=== PATIENT | female | born 1935 | race Caucasian/White ===

== ENCOUNTER 2016-12-01 18:40 | Inpatient (IN) | payer OTHER ==
[2016-12-01] MEDS ORDERED: NORMAL SALINE 10 ML SYRINGE FLUSH IVP PRN ×3 (18:57→22:34)
[2016-12-01] MEDS ORDERED: Sodium Chloride 0.9% 1,000 ML PRIMARY IV ONE ×2 (18:57→22:34)
[2016-12-01] MEDS ORDERED: Sodium Chloride 0.9% 1,000 ML ONE (19:03)
--- NOTE | 2016-12-01 19:08 | EKG ---
[address] [address] Measurements Intervals [place] Rate: 107 P: 66 IA: 169 QRS: 48 QRSD: 137 T: 180 QT: 376 QTc: 439 Interpretive Statements SINUS TACHYCARDIA LEFT BUNDLE BRANCH BLOCK Compared to ECG 10/03/2016 20:05:43 First degree AV block no longer present Electronically Signed On 12-01-16 19:58:14 MST by Isael Kingsley [email or web address]
[2016-12-01 19:13] LABS: BASOPHILS # (AUTO) 0.03 10*3/UL; BASOPHILS % (AUTO) 0.6 % (0-1); EOSINOPHILS % (AUTO) 0.4 % (0-8); HEMATOCRIT 39.3 % (37.0-47.0); HEMOGLOBIN 12.3 g/dL (12.0-16.0); IMM GRAN % (AUTO) 0.2 % (0-5); IMM GRAN# (AUTO) 0.01 10*3/UL; LYMPHOCYTES # (AUTO) 0.81 10*3/uL; MEAN CORPUSCULAR HEMOGLOBIN 25.2 PG (27-31); MEAN CORPUSCULAR HGB CONC 31.3 g/dL (33-37); MEAN PLATELET VOLUME 9.9 FL (7.4-12.2); MONOCYTES # (AUTO) 0.55 10*3/UL (0.3-0.8); MONOCYTES % (AUTO) 10.2 % (5-15); NEUTROPHILS # (AUTO) 3.97 10*3/UL; NEUTROPHILS % (AUTO) 73.6 % (50-80); RDW COEFFICIENT OF VARIATION 15.5 % (11.5-14.5); RED BLOOD COUNT 4.89 10^6/uL (4.20-5.40); WHITE BLOOD COUNT 5.39 10^3/uL (4.8-10.8)
[2016-12-01 19:14] LABS: PLATELET MORPHOLOGY COMMENT NORMAL MORPHOLOGY (NORM)
[2016-12-01 19:24] LABS: AMYLASE 52 U/L (30-110)
[2016-12-01 19:26] LABS: ASPARTATE AMINO TRANSFERASE 18 IU/L (8-39); BILIRUBIN,TOTAL 1.4 mg/dL (0.3-1.2); BLOOD UREA NITROGEN 11 mg/dL (7-22); BUN/CREATININE RATIO 13.75 (6-20); CALCIUM 9.2 mg/dL (8.7-10.7); CHLORIDE 99 meq/L (98-112); CREATININE 0.8 mg/dL (0.50-1.20); GLUCOSE 121 mg/dL (78-110); MAGNESIUM 1.6 mg/dL (1.6-2.4); POTASSIUM 3.4 meq/L (3.8-5.2); SODIUM 138 meq/L (135-145); TOTAL PROTEIN 7.9 g/dL (6.1-8.0)
[2016-12-01 19:29] LABS: C-REACTIVE PROTEIN < 0.5 mg/dL (0.0-0.9)
[2016-12-01 20:46] LABS: BILIRUBIN,URINE NEGATIVE (NEG); CLARITY,URINE CLEAR (CLEAR); GLUCOSE, URINE (UA) NEGATIVE (NEG); LEUKOCYTE ESTERASE ,URINE NEGATIVE (NEG); NITRATE,URINE NEGATIVE (NEG); OCCULT BLOOD,URINE Trace-intact (NEG); PROTEIN,URINE 30 mg/dl (NEG); UROBILINOGEN,URINE 0.2 EU/dL (0.2)
--- NOTE | 2016-12-01 20:48 | DI ---
HISTORY: Patient complaining of low abdominal pain. History of hysterectomy. COMPARISON: None. TECHNIQUE: Helical CT scanning was performed from the lung bases, through the abdomen and pelvis, to the level of lesser trochanters following the administration of IV contrast material. MPR. Overall i mage quality is limited secondary to patient motion. FINDINGS: LUNG BASES/LOWER HEART: Basilar atelectasis, no focal basilar consolidation, pleural effusion or pne umothorax. Mild cardiac enlargement. Atherosclerotic calcifications of the aorta and coronary arter ies. ABDOMEN/PELVIS: LIVER: Homogeneous parenchymal attenuation. GALLBLADDER: Not visualized, may be surgically absent. PANCREAS: No adjacent inflammatory change. ADRENAL GLANDS: Maintain their triangular shape. SPLEEN: Normal enhancement pattern. KIDNEYS: Anatomic location. No hydronephrosis. Numerous sub centimeter bilateral cortically based les ions, statistically cysts. GREAT VESSELS: Enhance unremarkably, noting atherosclerotic vascular changes of the aorta and its bra nch vessels. FREE INTRAPERITONEAL FLUID: No large volume. VARIABLY DISTENDED BOWEL LOOPS: No findings of high grade bowel obstruction. The distal ileum mucos a demonstrates mild hyperenhancement and contains fluid. Few colonic divericuli are present. No foca l extraluminal collection or free air. APPENDIX: Not visualzied, no inflammatory change in the right lower quadrant. INTERNAL ORGANS: Uterus surgically absent. OSSEOUS STRUCTURES: Multilevel advanced thoracic and lumbar degenerative changes noting a sigmoid tho racolumbar curvature. IMPRESSION: 1. No findings of high grade bowel obstruction, perforation or abscess. 2. The distal ileum mucosa demonstrates mild hyperenhancement and contains fluid, findings may be sec ondary to infectious or inflammatory colitis, early partial small bowel obstruction could have a henri lar appearance. If continued symptoms consider followup CT abdomen following the administration of e nteric contrast agent to further characterize.
[2016-12-01 20:50] LABS: URINE SAMPLE TYPE CATH SPECIMEN
[2016-12-01 20:51] LABS: RBC,URINE 0-2 /hpf
[2016-12-01] MEDS ORDERED: Pantoprazole Inj 40 MG in Normal Saline Flush 10 ML IVP ONE (21:10)
--- NOTE | 2016-12-01 21:16 | PDOC ---
Abdomen/Flank HPI - General Chief Complaint: Abdomen Pain Stated Complaint: Abdominal pain Date Seen by Provider: 12/01/16 Time Seen by Provider: 18:45 Source: POSITIVE: Patient Exam Limitations: POSITIVE: No limitations Nurse's Notes Reviewed & Considered: Yes - History of Present Illness Initial Comments: The patient is an 81-year-old female who presents to the emergency department with upper abdominal pain, decreased appetite and generalized weakness. Her family reports that she has not been feeling well for the past 2 or 3 days. They state that he is not eating or drinking hardly anything. She had a small amount of 7-Up over the past 3 days and part of a cracker. She is complaining of some upper abdominal pain. She has not had any vomiting and denies diarrhea or blood in her stool. She has not had any fevers and denies urinary symptoms. She has not had any chest pain or shortness of breath, numbness or weakness in her extremities other than generalized weakness. She was hospitalized approximately 1 month ago with a GI bleed from a duodenal ulcer in [place]. She apparently received blood transfusions and had an EGD at that time. Her family does report that they are unsure whether she has been taking her antiacid medicines for the past couple of weeks. In addition multiple family members have been ill with gastroenteritis type symptoms. - Patient Home Medications Home Medications: Home Medications Fluoxetine HCl [Prozac] 20 mg PO DAILY 10/04/16 Furosemide [Lasix] 20 mg PO DAILY 10/04/16 Pantoprazole Sodium [Protonix] 40 mg PO BID 10/04/16 Potassium Chloride 1 tab PO BID tab 10/28/16 Sucralfate 1 tab PO QID #120 tab 10/28/16 Cholecalciferol (Vitamin D3) [Vitamin D3] 1 tab PO QD #30 tab 10/31/16 - Patient Allergies Allergies/Adverse Reactions: Allergies Allergy/AdvReac Type Severity Reaction Status Date / Time No Known Allergies Allergy Unverified 10/28/16 14:46 Past Medical History - heen HEENT History: Cataracts Cardiovascular History: Hypertension, Arrhythmia Respiratory History: Denies History Gastrointestinal History: Peptic Ulcer Disease, Other (please comment) Additional Gastrointestinal History: OCC INCONTINENCE. 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 History of Sexually Transmitted Diseases: No Cancer History: Denies History In Past Year Been Physically Harmed or Verbally Threatened: No History of MDRO: No History of Other Communicable Diseases: No Tobacco Use: Never Smoker Alcohol Use: None Substance Use Type: None Previous Surgical History: Yes Type / Date of Surgery: HYSTERECTOMY. APPY Anesthesia Reactions: No Malignant Hyperthermia: No Significant Family History: Heart disease, Cancer Past Medical History Reviewed: Reviewed - No Changes ROS - Limitations ROS Limitations: Other (please comment) (Patient is somewhat of a poor historian , family provides good history) Constitution: REPORTS: Weakness (Generalized weakness, decreased appetite as above). DENIES: Chills, Fever Cardiovascular: DENIES: Chest Pain, Heart Palpitations, Edema (She was having edema several weeks ago however this seems to be improved currently) Respiratory: DENIES: Cough Non Productive, Cough Productive, Shortness Of Breath Neurological: DENIES: Headache, Numbness, Weakness Gastrointestinal: REPORTS: Abdominal Pain, Nausea. DENIES: Vomitting, Diarrhea , Black Stools, Bloody Stools, Constipation Endocrine: REPORTS: Fatigue Musculoskeletal: REPORTS: Denies MS Symptoms Genitourinary: REPORTS: Denies Symptoms Eyes: REPORTS: Denies Symptoms ENT: REPORTS: Denies Symptoms Skin: DENIES: Rash Abdominal/Flank Pain PE - General Appearance General Appearance: POSITIVE: Alert, Cooperative, No Acute Distress, Other (She does appear chronically ill) - HEENT HEENT: POSITIVE: Head Inspection Nml, Eyes Inspection Nml, Ears Inspection Nml, Pharynx Inspect. Nml - Neck Neck: POSITIVE: Normal Inspection. NEGATIVE: Lymphadenopathy - Respiratory Respiratory: POSITIVE: No Respiratory Distress, Breath Sounds Normal - Cardiovascular Cardiovascular: POSITIVE: Regular Rate and Rhythm, Heart Sounds Normal Peripheral Pulses: Dorsalis-pedis (R): 2+, Dorsalis-pedis (L): 2+ - Abdomen Abdomen: Soft: (All Quadrants), Normal Bowel Sounds: (All Quadrants), No Guarding: (All Quadrants), No Rebound: (All Quadrants) Additional Abdominal Details: Her abdomen is somewhat distended, she does have some tenderness primarily in the epigastric region without guarding or rebound tenderness, bowel sounds are present. - Skin Skin: POSITIVE: Intact, No Rash - Extremities Extremity: Normal ROM: (All Extremities), Normal Inspection: (All Extremities) - Neurological Neurological: POSITIVE: Oriented X3, Motor Normal, Sensation Normal Abdomen Progress - Results Reviewed by me Xrays/CTs/US Reviewed by me: Yes Discussed with Radiologist: Yes Radiology Findings: CT scan of the abdomen and pelvis with IV contrast reveals some nonspecific dilated loops of bowel with some fluid and air with no evidence of obstruction or any other acute abnormalities per radiologist. She does have diverticulum without any evidence of active diverticulitis. Lab Results Reviewed: Yes Lab Results:: Laboratory Results 12/01/16 12/01/16 Range/Units 19:09 20:43 WBC 5.39 (4.8-10.8) 10^3/uL RBC 4.89 (4.20-5.40) 10^6/uL Hgb 12.3 (12.0-16.0) g/dL Hct 39.3 (37.0-47.0) % MCV 80.4 L (81-99) FL MCH 25.2 L (27-31) PG MCHC 31.3 L (33-37) g/dL RDW Std Deviation 44.8 (39-50) fL RDW Coeff of Julienne 15.5 H (11.5-14.5) % Plt Count 259 (140-350) 10*3/uL MPV 9.9 (7.4-12.2) FL Immature Gran % (Auto) 0.2 (0-5) % Neut % (Auto) 73.6 (50-80) % Lymph % (Auto) 15.0 (10-50) % [place] % (Auto) 10.2 (5-15) % Eos % (Auto) 0.4 (0-8) % Baso % (Auto) 0.6 (0-1) % Immature Gran # (Auto) 0.01 10*3/UL Neut # (Auto) 3.97 10*3/UL Lymph # (Auto) 0.81 10*3/uL [place] # (Auto) 0.55 (0.3-0.8) 10*3/UL Eos # (Auto) 0.02 10*3/UL Baso # (Auto) 0.03 10*3/UL WBC Morphology Comment Normal morphology (NORM) Plt Morphology Comment Normal morphology (NORM) RBC Morph Comment Normal morphology (NORM) Sodium 138 (135-145) meq/L Potassium 3.4 L (3.8-5.2) meq/L Chloride 99 (98-112) meq/L Carbon Dioxide 27 (23-33) meq/L Anion Gap 12 (5-20) BUN 11 (7-22) mg/dL Creatinine 0.8 (0.50-1.20) mg/dL Estimated GFR (>60 ml/min/1.73m(2)) BUN/Creatinine Ratio 13.75 (6-20) Glucose 121 H (78-110) mg/dL Calculated Osmolality 285.0 (267-292) mOsm/kg Calcium 9.2 (8.7-10.7) mg/dL Magnesium 1.6 (1.6-2.4) mg/dL Total Bilirubin 1.4 H (0.3-1.2) mg/dL AST 18 (8-39) IU/L ALT 29 (9-52) IU/L Alkaline Phosphatase 98 (38-126) IU/L Troponin I 0.015 (< 0.040) ng/mL C-Reactive Protein < 0.5 (0.0-0.9) mg/dL Total Protein 7.9 (6.1-8.0) g/dL Albumin 4.0 (3.5-4.8) g/dL Globulin 3.9 (2.50-4.10) g/dL Albumin/Globulin Ratio 1.00 L (1.3-2.0) mg/g Amylase 52 (30-110) U/L Lipase 92 (23-300) IU/L Ur Collection Type Cath specimen Urine Color Yellow Urine Clarity Clear (CLEAR) Urine pH 7.0 (5.0-8.5) Ur Specific [place] 1.015 (1.005-1.030) Urine Protein 30 (NEG) mg/dl Urine Glucose (UA) Negative (NEG) mg/dL Urine Ketones 15 (NEG) Urine Occult Blood Trace-intact H (NEG) Urine Nitrate Negative (NEG) Urine Bilirubin Negative (NEG) Urine Urobilinogen 0.2 (0.2) EU/dL Ur Leukocyte Esterase Negative (NEG) Urine RBC 0-2 (NONE) /hpf Urine WBC None (NONE) Ur Squamous Epith Cells None (NONE) Ur Renal Epithelial Cell None (NONE) Urine Crystals None Urine Bacteria None (NONE) Urine Casts None (NONE) Urine Mucus None (NONE) Urine Trichomonas None (NONE) Urine Yeast None (NONE) Ur Culture Indicated? Culture not set EKG Interpreted/Reviewed By Me:: Yes EKG Interpretation:: POSITIVE: Normal Sinus Rhythm, Normal Rate, Normal Intervals, Other (Left bundle branch block unchanged from previous) - Patient's Progress MDM / ED Course: On arrival the patient appears to be somewhat dehydrated. An IV was established and she did receive 1 L bolus of normal saline. Lab work and urinalysis are all essentially unremarkable. CT scan of her abdomen and pelvis reveals some nonspecific dilated loops of bowel with no evidence of obstruction or any other acute abnormality per radiologist. The patient's clinical presentation is most consistent with gastritis. She did recently have a GI bleeding secondary to duodenal ulcer and she has not been taking her an acid medicines. The patient will be admitted for further hydration and treatment. Dr. Mehta has agreed to admit the patient and the family and the patient are in agreement with this plan. Patient Care Time - Estimated PCT Patient Care Time (In Minutes): 35 Vital Signs - Recent Vital Signs Vital Signs: Vital Signs (Last 8 hours) Temp Pulse Resp BP Pulse Ox 12/01/16 18:40 97.6 F 114 H 16 177/105 97 - VS Reviewed Vital Signs Reviewed: Yes Discharge Clinical Impression: Abdominal pain, Dehydration, Gastritis Discharge Disposition: Admit to Observation Condition: Fair
[2016-12-01] MEDS ORDERED: ONDANSETRON 4 MG/2 ML VIAL ONE (21:25)
[2016-12-01] MEDS ORDERED: Magnesium Sulfate 2gm (Premix) 2 GM in Premix 1 BAG IV ONE ×2 (21:28→22:00)
--- NOTE | 2016-12-01 21:32 | PDOC ---
History and Physical - History of Present Illness History of Present Illness: This very nice 81-year-old female past medical history significant for upper GI bleed about 1 month ago and was transferred to [place] for a duodenal ulcer which she received some transfusions and the EGD at that time presented to the emergency room with the abdominal pain and generalized weakness decreased appetite for the last 2 or 3 days denies diarrhea nausea vomiting no dysuria or hematuria no chest pain. This morning she appears much better she states that she is now back to her normal self but she has tolerated food is also had a bowel movement. CT scan showed possible ileus repeated abdominal x-ray KUB today - Patient Allergies Allergies/Adverse Reactions: Allergies Allergy/AdvReac Type Severity Reaction Status Date / Time No Known Allergies Allergy Unverified 10/28/16 14:46 Past Medical History - heen HEENT History: Cataracts Cardiovascular History: Hypertension, Arrhythmia Respiratory History: Denies History Gastrointestinal History: Peptic Ulcer Disease, Other (please comment) Additional Gastrointestinal History: OCC INCONTINENCE. 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 History of Sexually Transmitted Diseases: No Cancer History: Denies History In Past Year Been Physically Harmed or Verbally Threatened: No History of MDRO: No History of Other Communicable Diseases: No Tobacco Use: Never Smoker Alcohol Use: None Substance Use Type: None Previous Surgical History: Yes Type / Date of Surgery: HYSTERECTOMY. APPY Anesthesia Reactions: No Malignant Hyperthermia: No Significant Family History: Heart disease, Cancer Past Medical History Reviewed: Reviewed - No Changes Past Medical History Medical History: Upper GI bleed, duodenal ulcer Surgical History: EGD Tobacco Use: Never Smoker Substance Use Type: None Medication / Allergies Home Medications: Home Medications Medication Instructions Recorded Confirmed Type Fluoxetine HCl [Prozac] 20 mg PO DAILY 10/04/16 12/01/16 History Pantoprazole Sodium [Protonix] 40 mg PO BID 10/04/16 12/01/16 History Cholecalciferol (Vitamin D3) 1 tab PO QD #30 tab 10/31/16 12/01/16 Clinic [Vitamin D3] Metoprolol Succinate 12.5 mg PO DAILY 12/01/16 12/01/16 History Allergies/Adverse Reactions: Allergies Allergy/AdvReac Type Severity Reaction Status Date / Time No Known Allergies Allergy Verified 12/01/16 21:47 Review of Systems - Review of Systems All Systems: Reviewed & No Additional Complaints Except as Stated - Respiratory Respiratory: DENIES: Negative System Review, Cough, Sputum, Dyspnea At Rest, Dyspnea with Exertion, Pleuritic Pain, Hemoptysis, Wheezing, Other, See HPI - Gastrointestinal Gastrointestinal / Abdominal: DENIES: Negative System Review, Nausea, Vomiting, Diarrhea, Constipation, Abdominal Pain, Bloody Stool, Poor Appetite, Heartburn, Regurgitation, Bloating, Lactose Intolerance, Melena, Bright Red Blood Per Rectum, Other, See HPI - Genitourinary Genitourinary: DENIES: Negative System Review, Pain, Burning, Hematuria, Incontinence, Urgency, Hesitant Stream, Decreased Stream, Nocutria, Discharge, Sexual Dyfunction, Other, See HPI Exam - Vitals Vital Signs: Vital Signs Temperature 97.6 F Temperature Source Temporal Artery Scan Pulse Rate [Pulse Oximeter] 114 Respiratory Rate 16 Blood Pressure [Right Arm] 177/105 Pulse Ox 97 Oxygen Delivery Method Room Air Height 5 ft 2 in Weight 54.431 kg - General General Appearance: POSITIVE: No Acute Distress, Cooperative - Head Head Exam: POSITIVE: Normal Inspection, Normocephalic, Atraumatic - Eye Eye Exam: POSITIVE: Normal Appearance - Respiratory Respiratory Exam: POSITIVE: Clear to Auscultation - Bilaterally, Breathing Non Labored - Cardiovascular Cardiovascular Exam: POSITIVE: RRR, No Murmur, No Clicks - GI/Abdominal GI/Abdominal Exam: POSITIVE: Normal Bowel Sounds, Non Tender, Soft - Extremities Extremities Exam: POSITIVE: Normal Inspection, No Clubbing Present, No Edema Present - Neurological Neurological Exam: POSITIVE: Alert, Oriented x 3, CN II-XII Intact, No Facial Droop, Speech Intact / Clear - Psychiatric Psychiatric Exam: POSITIVE: Normal Affect Results - Labs CBC and BMP: 12/02/16 05:48 12/02/16 05:48 Labs - Last 24 Hours: Laboratory Results 12/01/16 12/01/16 Range/Units 19:09 20:43 WBC 5.39 (4.8-10.8) 10^3/uL RBC 4.89 (4.20-5.40) 10^6/uL Hgb 12.3 (12.0-16.0) g/dL Hct 39.3 (37.0-47.0) % MCV 80.4 L (81-99) FL MCH 25.2 L (27-31) PG MCHC 31.3 L (33-37) g/dL RDW Std Deviation 44.8 (39-50) fL RDW Coeff of Julienne 15.5 H (11.5-14.5) % Plt Count 259 (140-350) 10*3/uL MPV 9.9 (7.4-12.2) FL Immature Gran % (Auto) 0.2 (0-5) % Neut % (Auto) 73.6 (50-80) % Lymph % (Auto) 15.0 (10-50) % [place] % (Auto) 10.2 (5-15) % Eos % (Auto) 0.4 (0-8) % Baso % (Auto) 0.6 (0-1) % Immature Gran # (Auto) 0.01 10*3/UL Neut # (Auto) 3.97 10*3/UL Lymph # (Auto) 0.81 10*3/uL [place] # (Auto) 0.55 (0.3-0.8) 10*3/UL Eos # (Auto) 0.02 10*3/UL Baso # (Auto) 0.03 10*3/UL WBC Morphology Comment Normal morphology (NORM) Plt Morphology Comment Normal morphology (NORM) RBC Morph Comment Normal morphology (NORM) Sodium 138 (135-145) meq/L Potassium 3.4 L (3.8-5.2) meq/L Chloride 99 (98-112) meq/L Carbon Dioxide 27 (23-33) meq/L Anion Gap 12 (5-20) BUN 11 (7-22) mg/dL Creatinine 0.8 (0.50-1.20) mg/dL Estimated GFR (>60 ml/min/1.73m(2)) BUN/Creatinine Ratio 13.75 (6-20) Glucose 121 H (78-110) mg/dL Calculated Osmolality 285.0 (267-292) mOsm/kg Calcium 9.2 (8.7-10.7) mg/dL Magnesium 1.6 (1.6-2.4) mg/dL Total Bilirubin 1.4 H (0.3-1.2) mg/dL AST 18 (8-39) IU/L ALT 29 (9-52) IU/L Alkaline Phosphatase 98 (38-126) IU/L Troponin I 0.015 (< 0.040) ng/mL C-Reactive Protein < 0.5 (0.0-0.9) mg/dL Total Protein 7.9 (6.1-8.0) g/dL Albumin 4.0 (3.5-4.8) g/dL Globulin 3.9 (2.50-4.10) g/dL Albumin/Globulin Ratio 1.00 L (1.3-2.0) mg/g Amylase 52 (30-110) U/L Lipase 92 (23-300) IU/L Ur Collection Type Cath specimen Urine Color Yellow Urine Clarity Clear (CLEAR) Urine pH 7.0 (5.0-8.5) Ur Specific [place] 1.015 (1.005-1.030) Urine Protein 30 (NEG) mg/dl Urine Glucose (UA) Negative (NEG) mg/dL Urine Ketones 15 (NEG) Urine Occult Blood Trace-intact H (NEG) Urine Nitrate Negative (NEG) Urine Bilirubin Negative (NEG) Urine Urobilinogen 0.2 (0.2) EU/dL Ur Leukocyte Esterase Negative (NEG) Urine RBC 0-2 (NONE) /hpf Urine WBC None (NONE) Ur Squamous Epith Cells None (NONE) Ur Renal Epithelial Cell None (NONE) Urine Crystals None Urine Bacteria None (NONE) Urine Casts None (NONE) Urine Mucus None (NONE) Urine Trichomonas None (NONE) Urine Yeast None (NONE) Ur Culture Indicated? Culture not set Assessment and Plan - Patient Problems (1) Abdominal pain Current Visit: Yes Status: Acute (2) Dehydration Current Visit: Yes Status: Acute (3) Gastritis Current Visit: Yes Status: Acute - Assessment / Plan Additional Assessment/Plan Details: #1 dehydration #2 hypokalemia #3 hypomagnesemia #4 abd pain- poss ileus on ct scan no obstruction replace electrolytes patient had a bowel movement today repeat KUB labs were reviewed electrolytes being replaced consult PT and OT
[2016-12-01] MEDS ORDERED: Pantoprazole Inj 40 MG in Normal Saline Flush 10 ML IVP SCH (21:45)
[2016-12-01] MEDS ORDERED: ONDANSETRON 4 MG/2 ML VIAL IVP PRN (22:34)
[2016-12-01] MEDS: HEPARIN 5000 UNIT/1 ML SUBCUT SCH (23:29)
[2016-12-02] MEDS: D5-1/2NS + 20mEq KCL 1,000 ML PRIMARY IV SCH ×3 (02:23→19:50)
[2016-12-02 06:08] LABS: BASOPHILS # (AUTO) 0.05 10*3/UL; BASOPHILS % (AUTO) 1.5 % (0-1); EOSINOPHILS % (AUTO) 2.6 % (0-8); HEMATOCRIT 31.6 % (37.0-47.0); HEMOGLOBIN 9.6 g/dL (12.0-16.0); IMM GRAN % (AUTO) 0 % (0-5); IMM GRAN# (AUTO) 0 10*3/UL; LYMPHOCYTES # (AUTO) 0.85 10*3/uL; LYMPHOCYTES % (AUTO) 24.7 % (10-50); MEAN CORPUSCULAR HEMOGLOBIN 25.1 PG (27-31); MEAN CORPUSCULAR HGB CONC 30.4 g/dL (33-37); MEAN PLATELET VOLUME 9.9 FL (7.4-12.2); MONOCYTES # (AUTO) 0.48 10*3/UL (0.3-0.8); NEUTROPHILS # (AUTO) 1.97 10*3/UL; NEUTROPHILS % (AUTO) 57.2 % (50-80); RDW COEFFICIENT OF VARIATION 15.3 % (11.5-14.5); RED BLOOD COUNT 3.83 10^6/uL (4.20-5.40); WHITE BLOOD COUNT 3.44 10^3/uL (4.8-10.8)
[2016-12-02 06:11] LABS: PLATELET MORPHOLOGY COMMENT NORMAL MORPHOLOGY (NORM)
[2016-12-02 06:32] LABS: BLOOD UREA NITROGEN 8 mg/dL (7-22); CHLORIDE 103 meq/L (98-112); CREATININE 0.8 mg/dL (0.50-1.20); SODIUM 135 meq/L (135-145)
[2016-12-02 06:33] LABS: GLUCOSE 92 mg/dL (78-110)
[2016-12-02] MEDS: HEPARIN 5000 UNIT/1 ML SUBCUT SCH ×3 (07:17→22:00)
[2016-12-02] MEDS: FLUoxetine 20 MG CAPSULE PO SCH (09:51)
--- NOTE | 2016-12-02 19:00 | DI ---
XR ABDOMEN KUB UPRIGHT,12/02/2016 12:11 PM: Clinical History: Ileus Previous Exam: CT abdomen pelvis performed December 01, 2016 Findings: 2 views of the abdomen and pelvis are obtained, and demonstrate diffuse osteopenia and significant le voscoliosis of the lumbar spine at L1/2. There is large, air-filled loops of colon throughout with a few air-fluid levels. Impression: Large amount of air throughout the colon consistent with an ileus.
[2016-12-02] MEDS ORDERED: POTASSIUM CHLORIDE 20 MEQ TAB PO SCH (21:00)
[2016-12-02] MEDS ORDERED: Potassium Chloride Tab 10 MEQ TAB PO ONE (21:43)
[2016-12-03] MEDS: D5-1/2NS + 20mEq KCL 1,000 ML PRIMARY IV SCH (04:12)
[2016-12-03 06:05] LABS: BASOPHILS # (AUTO) 0.04 10*3/UL; BASOPHILS % (AUTO) 1.4 % (0-1); EOSINOPHILS % (AUTO) 5.9 % (0-8); HEMATOCRIT 33.6 % (37.0-47.0); IMM GRAN % (AUTO) 0.3 % (0-5); IMM GRAN# (AUTO) 0.01 10*3/UL; LYMPHOCYTES # (AUTO) 0.68 10*3/uL; LYMPHOCYTES % (AUTO) 23.7 % (10-50); MEAN CORPUSCULAR HEMOGLOBIN 24.6 PG (27-31); MEAN CORPUSCULAR HGB CONC 29.8 g/dL (33-37); MEAN PLATELET VOLUME 10.2 FL (7.4-12.2); MONOCYTES # (AUTO) 0.38 10*3/UL (0.3-0.8); MONOCYTES % (AUTO) 13.2 % (5-15); NEUTROPHILS # (AUTO) 1.59 10*3/UL; NEUTROPHILS % (AUTO) 55.5 % (50-80); RDW COEFFICIENT OF VARIATION 15.4 % (11.5-14.5); RED BLOOD COUNT 4.06 10^6/uL (4.20-5.40); WHITE BLOOD COUNT 2.87 10^3/uL (4.8-10.8)
[2016-12-03 06:07] LABS: PLATELET MORPHOLOGY COMMENT NORMAL MORPHOLOGY (NORM)
[2016-12-03 06:53] LABS: ASPARTATE AMINO TRANSFERASE 13 IU/L (8-39); BILIRUBIN,TOTAL 0.7 mg/dL (0.3-1.2); BLOOD UREA NITROGEN 6 mg/dL (7-22); BUN/CREATININE RATIO 8.57 (6-20); CALCIUM 8.1 mg/dL (8.7-10.7); CHLORIDE 110 meq/L (98-112); CREATININE 0.7 mg/dL (0.50-1.20); GLUCOSE 87 mg/dL (78-110); POTASSIUM 4.8 meq/L (3.8-5.2); SODIUM 143 meq/L (135-145)
[2016-12-03 06:54] LABS: TOTAL PROTEIN 6.3 g/dL (6.1-8.0)
--- NOTE | 2016-12-03 08:48 | PDOC(PROG) ---
Date and Time of Service: 12/03/2016 8 am Interval History: Subjective Patient is a difficult historian, I think she has some dementia, she couldn't tell me why she ended up here in the hospital but after specific questioning she remembered that she had some problems in her belly but she couldn't tell me when did that start, she did say that she had some pain in her abdomen and that seemed to be resolved now. She states she is feeling much better. She couldn' t tell me whether she had a bowel movement or not. She did say she ate. She said she lives with her niece. She is denying abdominal pain now, nausea, vomiting. When asked why she ended up in [place] a month ago she couldn't tell me why. Apparently she had a GI bleeding per the note in she had the an EGD which showed duodenal ulcer. Despite the difficulty that she faces in remembering her symptoms she is able to tell me the day and the month the year. Objective : Data - Labs CBC and BMP: 12/03/16 05:45 12/03/16 05:45 Labs - Last 24 Hours: Laboratory Results 12/03/16 Range/Units 05:45 WBC 2.87 L (4.8-10.8) 10^3/uL RBC 4.06 L (4.20-5.40) 10^6/uL Hgb 10.0 L (12.0-16.0) g/dL Hct 33.6 L (37.0-47.0) % MCV 82.8 (81-99) FL MCH 24.6 L (27-31) PG MCHC 29.8 L (33-37) g/dL RDW Std Deviation 46.1 (39-50) fL RDW Coeff of Julienne 15.4 H (11.5-14.5) % Plt Count 183 (140-350) 10*3/uL MPV 10.2 (7.4-12.2) FL Immature Gran % (Auto) 0.3 (0-5) % Neut % (Auto) 55.5 (50-80) % Lymph % (Auto) 23.7 (10-50) % [place] % (Auto) 13.2 (5-15) % Eos % (Auto) 5.9 (0-8) % Baso % (Auto) 1.4 H (0-1) % Immature Gran # (Auto) 0.01 10*3/UL Neut # (Auto) 1.59 10*3/UL Lymph # (Auto) 0.68 10*3/uL [place] # (Auto) 0.38 (0.3-0.8) 10*3/UL Eos # (Auto) 0.17 10*3/UL Baso # (Auto) 0.04 10*3/UL WBC Morphology Comment Normal morphology (NORM) Plt Morphology Comment Normal morphology (NORM) RBC Morph Comment Normal morphology (NORM) Sodium 143 D (135-145) meq/L Potassium 4.8 D (3.8-5.2) meq/L Chloride 110 (98-112) meq/L Carbon Dioxide 26 (23-33) meq/L Anion Gap 7 (5-20) BUN 6 L (7-22) mg/dL Creatinine 0.7 (0.50-1.20) mg/dL Estimated GFR [employer] BUN/Creatinine Ratio 8.57 (6-20) Glucose 87 (78-110) mg/dL Calculated Osmolality 292.0 (267-292) mOsm/kg Calcium 8.1 L (8.7-10.7) mg/dL Total Bilirubin 0.7 (0.3-1.2) mg/dL AST 13 (8-39) IU/L ALT 22 (9-52) IU/L Alkaline Phosphatase 75 (38-126) IU/L Total Protein 6.3 (6.1-8.0) g/dL Albumin 3.1 L (3.5-4.8) g/dL Globulin 3.2 (2.50-4.10) g/dL Albumin/Globulin Ratio 0.90 L (1.3-2.0) mg/g Objective : Exam - General General Appearance: No Acute Distress, Cooperative - Head Head Exam: Normal Inspection, Atraumatic - Eye Eye Exam: Normal Appearance - ENT ENT Exam: Normal Exam - Neck Neck Exam: Normal Inspection - Respiratory Respiratory Exam: Clear to Auscultation - Bilaterally - Cardiovascular Cardiovascular Exam: RRR, Systolic Murmur - GI/Abdominal GI/Abdominal Exam: Normal Bowel Sounds, Non Tender, Soft - Rectal Rectal Exam: Deferred - External Exam: Deferred - Extremities Extremities Exam: Normal Inspection - Back Back Exam: Normal Inspection - Neurological Neurological Exam: Alert, Oriented x 3, CN II-XII Intact, Moves All Extremities Equally - Psychiatric Psychiatric Exam: Normal Affect - Integumentary Integumentary Exam: Normal Color Assessment and Plan - Patient Problems (1) Abdominal pain Current Visit: Yes Status: Acute Comment: Abdominal pain seemed to be resolved. I did speak with the nursing staff and she did have a bowel movement yesterday. She seemed to be tolerating her diet but she is on clear liquid. The x-ray that she had suggested some ileus. Though the repeat x-ray showed still the same but clinically she is denying symptoms there is no tenderness at all in her stomach. I think we'll advance her diet check on her later on if she still doing ok probably will send her home. (2) History of GI bleed Current Visit: Yes Status: Acute Comment: She is on Protonix continue
[2016-12-03] MEDS: FLUoxetine 20 MG CAPSULE PO SCH (09:34)
[2016-12-03] MEDS: METOPROLOL SUCCINATE 25 MG SR 24H TABLET PO SCH (09:34)
[2016-12-03] MEDS: PANTOPRAZOLE 40 MG TABLET PO SCH ×2 (09:34→20:36)
[2016-12-03] MEDS: HEPARIN 5000 UNIT/1 ML SUBCUT SCH ×3 (09:34→23:26)
[2016-12-04 06:47] LABS: BASOPHILS # (AUTO) 0.04 10*3/UL; BASOPHILS % (AUTO) 1.1 % (0-1); HEMATOCRIT 36.6 % (37.0-47.0); HEMOGLOBIN 11.3 g/dL (12.0-16.0); IMM GRAN % (AUTO) 0 % (0-5); IMM GRAN# (AUTO) 0 10*3/UL; LYMPHOCYTES # (AUTO) 0.81 10*3/uL; LYMPHOCYTES % (AUTO) 21.4 % (10-50); MEAN CORPUSCULAR HEMOGLOBIN 25.1 PG (27-31); MEAN CORPUSCULAR HGB CONC 30.9 g/dL (33-37); MEAN PLATELET VOLUME 10.4 FL (7.4-12.2); MONOCYTES # (AUTO) 0.53 10*3/UL (0.3-0.8); NEUTROPHILS # (AUTO) 2.26 10*3/UL; NEUTROPHILS % (AUTO) 59.5 % (50-80); RDW COEFFICIENT OF VARIATION 15.4 % (11.5-14.5); WHITE BLOOD COUNT 3.79 10^3/uL (4.8-10.8)
[2016-12-04 06:54] LABS: PLATELET MORPHOLOGY COMMENT NORMAL MORPHOLOGY (NORM)
[2016-12-04 07:11] LABS: BLOOD UREA NITROGEN 8 mg/dL (7-22); CHLORIDE 106 meq/L (98-112); CREATININE 0.8 mg/dL (0.50-1.20); GLUCOSE 105 mg/dL (78-110); POTASSIUM 3.6 meq/L (3.8-5.2); SODIUM 139 meq/L (135-145)
[2016-12-04 07:12] LABS: CALCIUM 8.5 mg/dL (8.7-10.7)
[2016-12-04 07:23] VITALS: RESP 20
[2016-12-04] MEDS: HEPARIN 5000 UNIT/1 ML SUBCUT SCH (08:24)
[2016-12-04] MEDS: FLUoxetine 20 MG CAPSULE PO SCH (08:25)
[2016-12-04] MEDS: Pantoprazole Inj 40 MG in Normal Saline Flush 10 ML IVP SCH ×2 (08:25)
[2016-12-04] MEDS: METOPROLOL SUCCINATE 25 MG SR 24H TABLET PO SCH (08:25)
[2016-12-04] MEDS: PANTOPRAZOLE 40 MG TABLET PO SCH (08:33)
[2016-12-04] MEDS ORDERED: Potassium Chloride Tab 10 MEQ TAB PO SCH (09:00)
--- NOTE | 2016-12-04 11:02 | PDOC(PROG) ---
Date and Time of Service: 12/04/2016 11 AM Interval History: Subjective Patient is denying symptoms. Yesterday after I checked on her in the afternoon she said she had some abdominal pain although her description was very vague, we decided to watch her overnight also because of her memory issues. Today she is denying symptoms there is no abdominal pain. No vomiting. She said she did have a bowel movement but she couldn't tell me when. Objective : Data - Labs CBC and BMP: 12/04/16 06:30 12/04/16 06:30 Labs - Last 24 Hours: Laboratory Results 12/04/16 Range/Units 06:30 WBC 3.79 L (4.8-10.8) 10^3/uL RBC 4.50 (4.20-5.40) 10^6/uL Hgb 11.3 L (12.0-16.0) g/dL Hct 36.6 L (37.0-47.0) % MCV 81.3 (81-99) FL MCH 25.1 L (27-31) PG MCHC 30.9 L (33-37) g/dL RDW Std Deviation 45.6 (39-50) fL RDW Coeff of Julienne 15.4 H (11.5-14.5) % Plt Count 207 (140-350) 10*3/uL MPV 10.4 (7.4-12.2) FL Immature Gran % (Auto) 0 (0-5) % Neut % (Auto) 59.5 (50-80) % Lymph % (Auto) 21.4 (10-50) % Barbour % (Auto) 14.0 (5-15) % Eos % (Auto) 4.0 (0-8) % Baso % (Auto) 1.1 H (0-1) % Immature Gran # (Auto) 0 10*3/UL Neut # (Auto) 2.26 10*3/UL Lymph # (Auto) 0.81 10*3/uL Barbour # (Auto) 0.53 (0.3-0.8) 10*3/UL Eos # (Auto) 0.15 10*3/UL Baso # (Auto) 0.04 10*3/UL WBC Morphology Comment Normal morphology (NORM) Plt Morphology Comment Normal morphology (NORM) RBC Morph Comment Normal morphology (NORM) Sodium 139 (135-145) meq/L Potassium 3.6 L D (3.8-5.2) meq/L Chloride 106 (98-112) meq/L Carbon Dioxide 26 (23-33) meq/L Anion Gap 7 (5-20) BUN 8 (7-22) mg/dL Creatinine 0.8 (0.50-1.20) mg/dL Estimated GFR Head Of [employer] BUN/Creatinine Ratio 10.00 (6-20) Glucose 105 (78-110) mg/dL Calculated Osmolality 285.0 (267-292) mOsm/kg Calcium 8.5 L (8.7-10.7) mg/dL Objective : Exam - General General Appearance: No Acute Distress, Cooperative - Head Head Exam: Normal Inspection - Eye Eye Exam: Normal Appearance - ENT ENT Exam: Normal Exam - Neck Neck Exam: Normal Inspection - Respiratory Respiratory Exam: Clear to Auscultation - Bilaterally - Cardiovascular Cardiovascular Exam: RRR - GI/Abdominal GI/Abdominal Exam: Normal Bowel Sounds, Non Tender, Non Distended, Soft - Rectal Rectal Exam: Deferred - External Exam: Deferred - Extremities Extremities Exam: Normal Inspection - Back Back Exam: Normal Inspection - Neurological Neurological Exam: Alert, CN II-XII Intact, Moves All Extremities Equally - Psychiatric Psychiatric Exam: Normal Affect Assessment and Plan - Patient Problems (1) Abdominal pain Current Visit: Yes Status: Acute Comment: This is resolved. She may had some gastritis. I think we can send her home. Follow-up with her primary. (2) History of GI bleed Current Visit: Yes Status: Acute Comment: Continue Protonix
[2016-12-04 11:47] VITALS: TEMP 98
--- NOTE | 2016-12-04 12:39 | DCSUMMARY ---
Hospitalization Summary Admit Date: 12/01/16 Discharge Date: 12/04/16 Hospital Course: Discharge diagnoses 1. Abdominal pain resolved, question gastritis versus ileus 2. History of recent GI bleed 3. Hypertension 4. Hypokalemia improved Hospital course This is an 81 years old female with medical history significant for history of hypertension, recent GI bleed for which she was transferred to [place] she received transfusion and had an EGD which showed a duodenal ulcer. She was brought to the hospital because of abdominal pain and weakness and decreased appetite the last 3 days because of that the she was brought to the hospital a CT scan of the abdomen showed no evidence of high-grade bowel obstruction, perforation or abscess. The distal ileum mucosa demonstrate mild hyperenhancement and contains fluid, findings may be secondary to infectious or inflammatory colitis. She had an x-ray of the abdomen the next day which showed possible ileus, I saw her on the fourth , she is a difficult historian, initially said he did not have complaint, we suspected some memory issues as she has trouble giving me the history. Abdominal examination unremarkable we thought will observe and after lunch I checked on her again that time she mentioned she had some vague abdominal pain so decided to watch her Overnight. on the day of discharge there was no events overnight she denied any complaint. Her abdominal examination was benign. We thought that she could be discharged home follow-up with her PCP. She need to take her medication including the Protonix she had an episode of gastritis versus ileus. She did have a low potassium when she came in and that was replaced. When she was discharged she was tolerating diet and she did have a bowel movement Laboratory Results 12/01/16 12/01/16 12/02/16 Range/Units 19:09 20:43 05:48 WBC 5.39 3.44 L (4.8-10.8) 10^3/uL RBC 4.89 3.83 L (4.20-5.40) 10^6/uL Hgb 12.3 9.6 L (12.0-16.0) g/dL Hct 39.3 31.6 L (37.0-47.0) % MCV 80.4 L 82.5 (81-99) FL MCH 25.2 L 25.1 L (27-31) PG MCHC 31.3 L 30.4 L (33-37) g/dL RDW Std Deviation 44.8 45.1 (39-50) fL RDW Coeff of Julienne 15.5 H 15.3 H (11.5-14.5) % Plt Count 259 191 (140-350) 10*3/uL MPV 9.9 9.9 (7.4-12.2) FL Immature Gran % (Auto) 0.2 0 (0-5) % Neut % (Auto) 73.6 57.2 (50-80) % Lymph % (Auto) 15.0 24.7 (10-50) % Merrick % (Auto) 10.2 14.0 (5-15) % Eos % (Auto) 0.4 2.6 (0-8) % Baso % (Auto) 0.6 1.5 H (0-1) % Immature Gran # (Auto) 0.01 0 10*3/UL Neut # (Auto) 3.97 1.97 10*3/UL Lymph # (Auto) 0.81 0.85 10*3/uL Merrick # (Auto) 0.55 0.48 (0.3-0.8) 10*3/UL Eos # (Auto) 0.02 0.09 10*3/UL Baso # (Auto) 0.03 0.05 10*3/UL WBC Morphology Comment Normal morphology Normal morphology (NORM) Plt Morphology Comment Normal morphology Normal morphology (NORM) RBC Morph Comment Normal morphology Normal morphology (NORM) Sodium 138 135 (135-145) meq/L Potassium 3.4 L 3.0 L (3.8-5.2) meq/L Chloride 99 103 (98-112) meq/L Carbon Dioxide 27 26 (23-33) meq/L Anion Gap 12 6 (5-20) BUN 11 8 (7-22) mg/dL Creatinine 0.8 0.8 (0.50-1.20) mg/dL Estimated GFR Packer (>60 ml/min/1.73m(2)) BUN/Creatinine Ratio 13.75 10.00 (6-20) Glucose 121 H 92 (78-110) mg/dL Calculated Osmolality 285.0 277.0 (267-292) mOsm/kg Calcium 9.2 8.0 L (8.7-10.7) mg/dL Magnesium 1.6 (1.6-2.4) mg/dL Total Bilirubin 1.4 H (0.3-1.2) mg/dL AST 18 (8-39) IU/L ALT 29 (9-52) IU/L Alkaline Phosphatase 98 (38-126) IU/L Troponin I 0.015 (< 0.040) ng/mL C-Reactive Protein < 0.5 (0.0-0.9) mg/dL Total Protein 7.9 (6.1-8.0) g/dL Albumin 4.0 (3.5-4.8) g/dL Globulin 3.9 (2.50-4.10) g/dL Albumin/Globulin Ratio 1.00 L (1.3-2.0) mg/g Amylase 52 (30-110) U/L Lipase 92 (23-300) IU/L Ur Collection Type Cath specimen Urine Color Yellow Urine Clarity Clear (CLEAR) Urine pH 7.0 (5.0-8.5) Ur Specific Clinton 1.015 (1.005-1.030) Urine Protein 30 (NEG) mg/dl Urine Glucose (UA) Negative (NEG) mg/dL Urine Ketones 15 (NEG) Urine Occult Blood Trace-intact H (NEG) Urine Nitrate Negative (NEG) Urine Bilirubin Negative (NEG) Urine Urobilinogen 0.2 (0.2) EU/dL Ur Leukocyte Esterase Negative (NEG) Urine RBC 0-2 (NONE) /hpf Urine WBC None (NONE) Ur Squamous Epith Cells None (NONE) Ur Renal Epithelial Cell None (NONE) Urine Crystals None Urine Bacteria None (NONE) Urine Casts None (NONE) Urine Mucus None (NONE) Urine Trichomonas None (NONE) Urine Yeast None (NONE) Ur Culture Indicated? Culture not set 12/03/16 12/04/16 Range/Units 05:45 06:30 WBC 2.87 L 3.79 L (4.8-10.8) 10^3/uL RBC 4.06 L 4.50 (4.20-5.40) 10^6/uL Hgb 10.0 L 11.3 L (12.0-16.0) g/dL Hct 33.6 L 36.6 L (37.0-47.0) % MCV 82.8 81.3 (81-99) FL MCH 24.6 L 25.1 L (27-31) PG MCHC 29.8 L 30.9 L (33-37) g/dL RDW Std Deviation 46.1 45.6 (39-50) fL RDW Coeff of Julienne 15.4 H 15.4 H (11.5-14.5) % Plt Count 183 207 (140-350) 10*3/uL MPV 10.2 10.4 (7.4-12.2) FL Immature Gran % (Auto) 0.3 0 (0-5) % Neut % (Auto) 55.5 59.5 (50-80) % Lymph % (Auto) 23.7 21.4 (10-50) % Merrick % (Auto) 13.2 14.0 (5-15) % Eos % (Auto) 5.9 4.0 (0-8) % Baso % (Auto) 1.4 H 1.1 H (0-1) % Immature Gran # (Auto) 0.01 0 10*3/UL Neut # (Auto) 1.59 2.26 10*3/UL Lymph # (Auto) 0.68 0.81 10*3/uL Merrick # (Auto) 0.38 0.53 (0.3-0.8) 10*3/UL Eos # (Auto) 0.17 0.15 10*3/UL Baso # (Auto) 0.04 0.04 10*3/UL WBC Morphology Comment Normal morphology Normal morphology (NORM) Plt Morphology Comment Normal morphology Normal morphology (NORM) RBC Morph Comment Normal morphology Normal morphology (NORM) Sodium 143 D 139 (135-145) meq/L Potassium 4.8 D 3.6 L D (3.8-5.2) meq/L Chloride 110 106 (98-112) meq/L Carbon Dioxide 26 26 (23-33) meq/L Anion Gap 7 7 (5-20) BUN 6 L 8 (7-22) mg/dL Creatinine 0.7 0.8 (0.50-1.20) mg/dL Estimated GFR Packer Packer (>60 ml/min/1.73m(2)) BUN/Creatinine Ratio 8.57 10.00 (6-20) Glucose 87 105 (78-110) mg/dL Calculated Osmolality 292.0 285.0 (267-292) mOsm/kg Calcium 8.1 L 8.5 L (8.7-10.7) mg/dL Magnesium (1.6-2.4) mg/dL Total Bilirubin 0.7 (0.3-1.2) mg/dL AST 13 (8-39) IU/L ALT 22 (9-52) IU/L Alkaline Phosphatase 75 (38-126) IU/L Troponin I (< 0.040) ng/mL C-Reactive Protein (0.0-0.9) mg/dL Total Protein 6.3 (6.1-8.0) g/dL Albumin 3.1 L (3.5-4.8) g/dL Globulin 3.2 (2.50-4.10) g/dL Albumin/Globulin Ratio 0.90 L (1.3-2.0) mg/g Amylase (30-110) U/L Lipase (23-300) IU/L Ur Collection Type Urine Color Urine Clarity (CLEAR) Urine pH (5.0-8.5) Ur Specific Clinton (1.005-1.030) Urine Protein (NEG) mg/dl Urine Glucose (UA) (NEG) mg/dL Urine Ketones (NEG) Urine Occult Blood (NEG) Urine Nitrate (NEG) Urine Bilirubin (NEG) Urine Urobilinogen (0.2) EU/dL Ur Leukocyte Esterase (NEG) Urine RBC (NONE) /hpf Urine WBC (NONE) Ur Squamous Epith Cells (NONE) Ur Renal Epithelial Cell (NONE) Urine Crystals Urine Bacteria (NONE) Urine Casts (NONE) Urine Mucus (NONE) Urine Trichomonas (NONE) Urine Yeast (NONE) Ur Culture Indicated? Discharge instruction Diet regular Activity as tolerated Medications Home Medications Medication Instructions Recorded Confirmed Type Fluoxetine HCl [Prozac] 20 mg PO DAILY 10/04/16 12/01/16 History Pantoprazole Sodium [Protonix] 40 mg PO BID 10/04/16 12/01/16 History Cholecalciferol (Vitamin D3) 1 tab PO QD #30 tab 10/31/16 12/01/16 Clinic [Vitamin D3] Metoprolol Succinate 12.5 mg PO DAILY 12/01/16 12/01/16 History Potassium Chloride [Klor-Con] 10 meq PO DAILY #5 tab 12/04/16 Rx Follow-up with PCP in 1-2 weeks Condition at discharge was stable for discharge Exam - Vitals Vital Signs: Vital Signs Temperature 98 F Temperature Source Temporal Artery Scan Pulse Rate [Apical] 92 Pulse Rate [Telemetry] 88 Pulse Rate [Pulse Oximeter] 88 Pulse Rate 77 Respiratory Rate 20 Blood Pressure [Right Arm] 174/87 Blood Pressure 175/96 Pulse Ox 97 Oxygen Delivery Method Room Air Height 5 ft 2 in Weight 124 lb 6.4 oz Patient Problems - Patient Problem List (1) Abdominal pain Status: Acute (2) History of GI bleed Status: Acute
--- NOTE | 2016-12-05 12:37 | PTI REPORT ---
Thank you for the referral of Cheryle Carter. She was seen on 12/04/16 for an inpatient evaluation secondary to weakness. SUBJECTIVE: The patient is an 81-year-old female who presented to the hospital after being at the [facility] for an upper GI bleed. We have just received orders for therapy for weakness. The patient states that she has had multiple falls in the last month. She states she has had a few at her apartment at that lives in in [place]. She states that she does have a LifeAlert button but she forgets to wear that at times. The patient states that she doesn't feel safe going back to her apartment; however, when asked about other options, she states she is not sure what other options she will have. The patient states that she does not wish to participet in therapy and wants to lay in bed instead. The patient feels that she can do most things on her own by herself. Prior to admittance to the hospital the patient was living in an apartment by herself. She does have lots of family in town in [place] to look after her as well and she was independent with her ADLs. She states that she dressed herself and took care of herself. The patient states that she did not use any kind of assistive device prior to coming to the hospital. PAST MEDICAL HISTORY: Past medical history can be found in the patient's medical record. OBJECTIVE FINDINGS: General observations: The patient is alert and oriented to setting upon the therapist's arrival. The patient is very reluctant to participate in therapy as she states that she feels she is doing fine and does not need therapy. Bed mobility: After max verbal cueing and encouragement, the patient was able to move from a supine to seated position, requiring min assist in order just to get into the position due to the patient's reluctance to participate. Balance: The patient demonstrated good seated balance at edge of bed. Strength: The patient demonstrated 4/5 bilateral lower extremity strength. Transfers: The patient was able to perform a sit to stand transfer with stand by assist x1 for safety. She is very impulsive with the movement; the therapist thinks it is mainly due to the fact that she doesn't want to participte in therapy because she stood up very quickly and took off walking toward her door at a very rapid, impulsive pace. Ambulation: The patient was steady with her walking. The therapist believes when the patient is ambulating when she wishes to do it, she probably does so at a more controlled pace. We did provide contact guard assist x1 for safety due to concerns with her impulsivity at the time. The patient ambulated 15 feet ; she then stopped at her door and stated she refused to walk any further. The patient then walked quickly back to her bed with contact guard assist x1 for safety concerns. Once the patient got over to her bed, she plopped back down onto her bed and refused to participate with anymore therapy. She stated she wished to remain seated edge of bed. ASSESSMENT: The patient has fair rehab potential due to her reluctancy to participate in therapy. Problem List: Decreased endurance/activity tolerance Safety concerns with patient's impulsivity at times Short-Term Goals: To be met by discharge from inpatient: Patient will be independent and safe with all transfers. Patient will be able to ambulate 150 feet safely without an assistive device. Long-Term Goals: To be met following discharge from inpatient: Patient will be seen by outpatient physical therapy if deemed necessary at time of discharge. TREATMENT PLAN: Patient will be seen B.I.D during the week and one time per day over the weekend as an inpatient for working on safety awareness with transfers, increasing ambulation distance, and general strengthening activities. INITIAL TREATMENT: Treatment today consisted of the initial evaluation followed by the patient performing bed mobility and ambulation. The patient walked quickly back to her bed with contact guard assist x1 for safety concerns. Once the patient got over to her bed, she plopped back down onto her bed and refused to participate with anymore therapy. She stated she wished to remain seated edge of bed. We did bucket hooker her chair alarm as she was sitting up in bed and also put on her bed alarm so that she could sit edge of bed. The patient was also given her call light. ROLANDO
--- NOTE | 2016-12-05 16:02 | OTI REPORT ---
Thank you for the referral of Cheryle Carter. She was seen on 12/04/16 for an occupational therapy inpatient evaluation secondary to weakness. SUBJECTIVE: The patient is an 81-year-old female. PAST MEDICAL HISTORY: Past medical history can be found in the patient's medical record. OBJECTIVE FINDINGS: [] ASSESSMENT: [] Short-Term Goals: To be met by discharge from inpatient: Patient will be able to [] Patient will be able to [] Patient will be able to [] Patient will be able to [] Long-Term Goals: To be met following discharge from inpatient: Patient will be able to [] Patient will be able to [] TREATMENT PLAN: Patient will be seen B.I.D during the week and one time per day over the weekend as an inpatient to address the above goals and objectives.[] INITIAL TREATMENT: [] MTDD
--- NOTE | 2016-12-08 10:50 | OTI REPORT ---
Thank you for the referral of Cheryle Carter. She was seen on 12/04/16 for an occupational therapy inpatient evaluation secondary to weakness. SUBJECTIVE: The patient is an 81-year-old female who is being seen secondary to falling at home and levels being off. The patient lives in her apartment by herself. The patient reports being independent with dressing herself and simple hygiene tasks. She states she did not have her LifeAlert on when she fell. She had difficulty describing where and when she fell. She does have some family that helps her. She goes to the [facility] at times for meals. PAST MEDICAL HISTORY: Past medical history can be found in the patient's medical record. OBJECTIVE FINDINGS: Cognition: Today the patient demonstrated some cognitive difficulties. She is a very concrete thinker and perseverated on some tasks and tried to detour from some of the conversation today by getting distracted by other things in her room. Activities of daily living: The patient was able to don and doff her socks independently. She was able to stand for two minutes at the sink to complete simple hygiene tasks with stand by assistance. Range of motion: Her upper extremity range of motion was within normal limits. Strength: Strength in bilateral upper extremities was 4/5. Pain: The patient states she is not in a lot of pain anywhere. Bed mobility: The patient was able to come from supine to sit independently. Transfers: The patient was able to come from sit to stand independently. ASSESSMENT: The patient needed increased time in order to process through some of the tasks. She is somewhat cognitively involved but is not willing to go to a correction. She will more than likely return to her apartment. Physically the patient is doing well. Cognitively she has always had issues and this is more than likely her baseline. Short-Term Goals: To be met by discharge from inpatient: Patient will increase upper extremity strength to 5/5. Patient will complete a mini mental assessment to assess her cognition. Patient will be able to complete all functional transfers independently. Long-Term Goals: To be met following discharge from inpatient: Patient will be discharged to her apartment, demonstrating independence with basic ADLs. TREATMENT PLAN: Patient will be seen B.I.D during the week and one time per day over the weekend as an inpatient to address the above goals and objectives. INITIAL TREATMENT: Treatment today consisted of the initial evaluation followed by functional transfers, lower extremity dressing tasks, and standing at sink x2 minutes to complete hygiene activities. ROLANDO
== END 2016-12-04 12:59 | disposition home or self-care (01) | DRG 392 ==
LOC: ER 18:40 → MED/SURG 21:27
PROVIDERS: ADMIT Internal Medicine; ATTEND Internal Medicine
DX: R10.10 Upper abdominal pain, unspecified (principal); K56.7 Ileus, unspecified; K29.70 Gastritis, unspecified, without bleeding; I10 Essential (primary) hypertension; E87.6 Hypokalemia; E86.0 Dehydration; E83.42 Hypomagnesemia
CPT/HCPCS: 36415; 74020; 74177; 80048; 80053; 81001; 81003; 82150; 83690; 83735; 84484; 85025; 86140; 93005; 93010; 96374; 97001; 99285; J1644; J2405; J3475; J3490; J7030

== ENCOUNTER 2016-12-10 14:20 | Inpatient (IN) | payer OTHER ==
[2016-12-10] MEDS ORDERED: Sodium Chloride 0.9% 1,000 ML PRIMARY IV ONE (14:42)
[2016-12-10] MEDS ORDERED: NORMAL SALINE 10 ML SYRINGE FLUSH IVP PRN ×2 (14:42→17:13)
[2016-12-10 15:04] LABS: BASOPHILS # (AUTO) 0.03 10*3/UL; BASOPHILS % (AUTO) 0.5 % (0-1); EOSINOPHILS % (AUTO) 1.8 % (0-8); HEMATOCRIT 35.1 % (37.0-47.0); HEMOGLOBIN 10.8 g/dL (12.0-16.0); IMM GRAN % (AUTO) 0.2 % (0-5); IMM GRAN# (AUTO) 0.01 10*3/UL; LYMPHOCYTES # (AUTO) 0.87 10*3/uL; LYMPHOCYTES % (AUTO) 15.4 % (10-50); MEAN CORPUSCULAR HEMOGLOBIN 24.9 PG (27-31); MEAN CORPUSCULAR HGB CONC 30.8 g/dL (33-37); MEAN PLATELET VOLUME 10.9 FL (7.4-12.2); MONOCYTES # (AUTO) 0.68 10*3/UL (0.3-0.8); NEUTROPHILS # (AUTO) 3.97 10*3/UL; NEUTROPHILS % (AUTO) 70.1 % (50-80); RDW COEFFICIENT OF VARIATION 15.9 % (11.5-14.5); RED BLOOD COUNT 4.33 10^6/uL (4.20-5.40); WHITE BLOOD COUNT 5.66 10^3/uL (4.8-10.8)
[2016-12-10 15:08] LABS: PLATELET MORPHOLOGY COMMENT NORMAL MORPHOLOGY (NORM)
[2016-12-10 15:16] LABS: BILIRUBIN,URINE NEGATIVE (NEG); CLARITY,URINE CLEAR (CLEAR); GLUCOSE, URINE (UA) NEGATIVE (NEG); LEUKOCYTE ESTERASE ,URINE SMALL (NEG); NITRATE,URINE POSITIVE (NEG); OCCULT BLOOD,URINE MODERATE (NEG); PROTEIN,URINE 30 mg/dl (NEG); UROBILINOGEN,URINE 0.2 mg/dL (0.2)
[2016-12-10 15:22] LABS: BILIRUBIN,TOTAL 1.1 mg/dL (0.3-1.2); BUN/CREATININE RATIO 18.88 (6-20); CALCIUM 9.1 mg/dL (8.7-10.7); CREATININE 0.9 mg/dL (0.50-1.20); POTASSIUM 3.8 meq/L (3.8-5.2)
[2016-12-10 15:34] LABS: URINE SAMPLE TYPE CATH SPECIMEN
[2016-12-10 15:35] LABS: BACTERIA,URINE MANY; WBC,URINE 15-20
--- NOTE | 2016-12-10 16:43 | PDOC ---
Nausea/Vomiting/Diarrhea HPI - General Chief Complaint: Nausea / Vomiting / Diarrhea Stated Complaint: diarrhea Date Seen by Provider: 12/10/16 Time Seen by Provider: 14:25 Source: POSITIVE: Patient, Other (nephew) Exam Limitations: POSITIVE: No limitations Nurse's Notes Reviewed & Considered: Yes - History of Present Illness Initial Comments: The patient is an 81 year old female. She states that around 03 October she was hospitalized with gastrointestinal bleeding in [place]. EGD reportedly showed a bleeding ulcer and she was transfused. She was discharged from the [facility] about a week later. She did not have a colonoscopy, although her manager fiber in [place] recommended that she have one upon her return to [place]. On December 01 she was hospitalized here with abdominal pain and weakness. She was hospitalized here for 3 days. Prior to her hospitalization in [place] on for September she lived alone, but since she has been living with her niece and nephew. Nephew reports that the patient has been having diarrhea and loose bowel movement was some fecal incontinence. He states that patient is also had some urinary incontinence. No vomiting. Stool has been dark. No abdominal pain. No fevers. She has reportedly been having a decreased appetite for the past 2 weeks. Patient takes potassium chloride supplements, pantoprazol l, metoprolol, cholecalciferol and fluoxetine. Body Location Affected: REPORTS: Abdomen, Other (As above) Timing: REPORTS: Gradual, Getting Worse Duration: >24 hours (2 days) Severity: Moderate Quality: REPORTS: Other (Patient denies any pain anywhere) Abdominal Pain Onset Location: REPORTS: Other ( patient denies pain anywhere) Abdominal Pain Radiation: REPORTS: No radiation Context: DENIES: None, Activity, Bending, Coughing, Fall, Lifting, Near Fall, Rest, Sitting, Sleep, Standing, Turning, Emotional stress, Camping, Bad Food, Out of Country Travel, Other, Recent Surgery, Recent Trauma Modifying Factors: improves with: Defecating, Urinating (Urinary incontinence) Associated Symptoms: REPORTS: Diarrhea, Other ("Dark stool") Similar Symptoms Previously: Yes (as above) Recent Care Received: REPORTS: Recently Seen, Treated by MD, Hospitalized (As above) Any Prior Injuries Related to Current Complaint?: No - Patient Home Medications Home Medications: Home Medications Fluoxetine HCl [Prozac] 20 mg PO DAILY 10/04/16 Pantoprazole Sodium [Protonix] 40 mg PO BID 10/04/16 Cholecalciferol (Vitamin D3) [Vitamin D3] 1 tab PO QD #30 tab 10/31/16 Metoprolol Succinate 12.5 mg PO DAILY 12/01/16 Potassium Chloride [Klor-Con] 10 meq PO DAILY #5 tab 12/04/16 - Patient Allergies Allergies/Adverse Reactions: Allergies Allergy/AdvReac Type Severity Reaction Status Date / Time No Known Allergies Allergy Verified 12/10/16 14:22 Past Medical History - heen HEENT History: Cataracts Cardiovascular History: Hypertension, Arrhythmia Respiratory History: Denies History Gastrointestinal History: Peptic Ulcer Disease, Other (please comment) Additional Gastrointestinal History: OCC INCONTINENCE, loose stools. GI BLEED 09/2016 Genitourinary History: Denies History Endocrine History: Denies History Musculoskeletal History: Arthritis Prosthesis or Implant: No Additional Musculoskeletal History: scoliosis hx Neurological History: Denies History Blood Disorders: Anemia, Other (please comment) Additional Blood Disorders History: 1986 Psychiatric History: Other (please comment) Additional Psychiatric History: Hx of short term memory dementia type symptoms per family. History of Sexually Transmitted Diseases: No Cancer History: Denies History In Past Year Been Physically Harmed or Verbally Threatened: No History of MDRO: Yes History of Other Communicable Diseases: No Tobacco Use: Never Smoker Alcohol Use: None Substance Use Type: None Previous Surgical History: Yes Type / Date of Surgery: HYSTERECTOMY. APPY Anesthesia Reactions: No Malignant Hyperthermia: No Significant Family History: Heart disease, Cancer Past Medical History Reviewed: Reviewed - No Changes ROS - Limitations ROS Limitations: No Limitations Constitution: REPORTS: Weakness Cardiovascular: REPORTS: Denies Cardiac Symptoms Respiratory: REPORTS: Denies Resp Symptoms Neurological: REPORTS: Denies Neuro Symptoms Gastrointestinal: REPORTS: Diarrhea, Black Stools Endocrine: REPORTS: Denies Symptoms Musculoskeletal: REPORTS: Denies MS Symptoms Genitourinary: REPORTS: Other (Urinary incontinence) Eyes: REPORTS: Denies Symptoms ENT: REPORTS: Denies Symptoms Skin: REPORTS: Denies Skin Symptoms Lympathic: REPORTS: Denies Lympathic Symptoms Immunologic: POSITIVE: Denies Symptoms Psychiatric: POSITIVE: Denies Psych Symptoms Nausea/Vomiting/Diarrhea Exam - General Appearance General Appearance: POSITIVE: Alert, Cooperative, No Acute Distress, No Evidence of Trauma - HEENT HEENT: POSITIVE: Head Inspection Nml, Eyes Inspection Nml, Ears Inspection Nml, Nose Inspection Nml, Oral/Dental Inspect. Nml, Pharynx Inspect. Nml, PERRL, EOMI - Neck Neck: POSITIVE: Supple, Normal Inspection, Non Tender - Respiratory Respiratory: POSITIVE: No Respiratory Distress, Breath Sounds Normal, Chest Non- Tender - Cardiovascular Cardiovascular: POSITIVE: Regular Rate and Rhythm, Heart Sounds Normal, Equal Pulses, Strong Pulses Peripheral Pulses: Radial (R): 2+, Radial (L): 2+ - Chest Chest: POSITIVE: Non Tender - Abdomen Abdomen: Soft: (All Quadrants), Normal Bowel Sounds: (All Quadrants), Denies Tenderness: (All Quadrants), No Splenomegaly: (All Quadrants), No Hepatomegaly: (All Quadrants), No Guarding: (All Quadrants), No Rebound: (All Quadrants), No Palpable Pulse: (All Quadrants), No Palpabale Mass: (All Quadrants), No Distention: (All Quadrants), No Rigidity: (All Quadrants) - Genital / Rectal Rectal: POSITIVE: Non Tender, Normal Rectal Tone, Black Stool, Heme Positive Stool - Back Back: POSITIVE: Normal Inspection - Skin Skin: POSITIVE: Intact, Normal For Race, Warm, Dry, No Rash - Extremities Extremity: Non-Tender: (All Extremities), Normal ROM: (All Extremities), Normal Inspection: (All Extremities) - Neurological / Psychological Neurological: POSITIVE: Affect Apporpriate, Oriented X3, delivery stock clerk Normal As Tested, Motor Normal, Sensation Normal N/V/D Progress - Results Reviewed by me Lab Results Reviewed: Yes (catheterized urinalysis shows UTI; stool Hemoccult positive) Lab Results:: Laboratory Results 12/10/16 12/10/16 Range/Units 15:00 15:13 WBC 5.66 (4.8-10.8) 10^3/uL RBC 4.33 (4.20-5.40) 10^6/uL Hgb 10.8 L (12.0-16.0) g/dL Hct 35.1 L (37.0-47.0) % MCV 81.1 (81-99) FL MCH 24.9 L (27-31) PG MCHC 30.8 L (33-37) g/dL RDW Std Deviation 46.9 (39-50) fL RDW Coeff of Julienne 15.9 H (11.5-14.5) % Plt Count 180 (140-350) 10*3/uL MPV 10.9 (7.4-12.2) FL Immature Gran % (Auto) 0.2 (0-5) % Neut % (Auto) 70.1 (50-80) % Lymph % (Auto) 15.4 (10-50) % Boyle % (Auto) 12.0 (5-15) % Eos % (Auto) 1.8 (0-8) % Baso % (Auto) 0.5 (0-1) % Immature Gran # (Auto) 0.01 10*3/UL Neut # (Auto) 3.97 10*3/UL Lymph # (Auto) 0.87 10*3/uL Boyle # (Auto) 0.68 (0.3-0.8) 10*3/UL Eos # (Auto) 0.10 10*3/UL Baso # (Auto) 0.03 10*3/UL WBC Morphology Comment Normal morphology (NORM) Plt Morphology Comment Normal morphology (NORM) RBC Morph Comment Normal morphology (NORM) Sodium 138 (135-145) meq/L Potassium 3.8 (3.8-5.2) meq/L Chloride 103 (98-112) meq/L Carbon Dioxide 25 (23-33) meq/L Anion Gap 10 (5-20) BUN 17 (7-22) mg/dL Creatinine 0.9 (0.50-1.20) mg/dL Estimated GFR (>60 ml/min/1.73m(2)) BUN/Creatinine Ratio 18.88 (6-20) Glucose 101 (78-110) mg/dL Calculated Osmolality 287.0 (267-292) mOsm/kg Calcium 9.1 (8.7-10.7) mg/dL Total Bilirubin 1.1 (0.3-1.2) mg/dL AST 17 (8-39) IU/L ALT 24 (9-52) IU/L Alkaline Phosphatase 76 (38-126) IU/L Total Protein 7.0 (6.1-8.0) g/dL Albumin 3.7 (3.5-4.8) g/dL Globulin 3.3 (2.50-4.10) g/dL Albumin/Globulin Ratio 1.10 L (1.3-2.0) mg/g Ur Collection Type Cath specimen Urine Color Yellow Urine Clarity Clear (CLEAR) Urine pH 5.0 (5.0-8.5) Ur Specific [place] 1.025 (1.005-1.030) Urine Protein 30 (NEG) mg/dl Urine Glucose (UA) Negative (NEG) mg/dL Urine Ketones 15 (NEG) Urine Occult Blood Moderate (NEG) Urine Nitrate Positive H (NEG) Urine Bilirubin Negative (NEG) Urine Urobilinogen 0.2 (0.2) mg/dL Ur Leukocyte Esterase Small (NEG) Urine RBC 5-10 (NONE) /hpf Urine WBC 15-20 (NONE) Ur Squamous Epith Cells None (NONE) Ur Renal Epithelial Cell None (NONE) Urine Crystals None Urine Bacteria Many (NONE) Urine Casts None Urine Mucus None (NONE) Urine Trichomonas None (NONE) Urine Yeast None (NONE) - Patient's Progress Pain Medication Addressed: POSITIVE: Not Applicable School/Work Release Addressed: POSITIVE: Not Applicable Re-examine Time: 16:25 Re-Examine Comment: Hemoglobin and hematocrit down from 12.3 and 39.3 respectively on December 01. Disposition options discussed with patient and family members. Patient is becoming progressively weak and her urinary incontinence and fecal incontinence is making it difficult for her to be cared for. Patient probably does need a colonoscopy. Decision was to admit the patient for further evaluation. Status: POSITIVE: Unchanged, Re-Examined - Consult Consult (If Yes, Name of Consulting MD & Time Called): Yes (Dr. Garcia, hospitalist, [id number]) Consulting MD will see pt:: POSITIVE: [facility] [place] Ad[place] Counseled: POSITIVE: Patient, Family, RE: Lab Results, RE: DX, RE: Need for F/U Patient Care Time - Estimated PCT Patient Care Time (In Minutes): 50 Vital Signs - Recent Vital Signs Vital Signs: Vital Signs (Last 8 hours) Temp Pulse Resp BP Pulse Ox 12/10/16 14:20 98.9 F 92 20 143/69 94 - VS Reviewed Vital Signs Reviewed: Yes Discharge Clinical Impression: Diarrhea, Anemia, Gastrointestinal hemorrhage, Urinary tract infection Discharge Disposition: Admit to Inpatient Condition: Fair Date Decision to Admit to Inpatient: 12/10/16 Time Decision to Admit to Inpatient: 16:15
[2016-12-10] MEDS ORDERED: ONDANSETRON 4 MG/2 ML VIAL IVP PRN (17:13)
[2016-12-10] MEDS: D5-1/2NS + 20mEq KCL 1,000 ML PRIMARY IV SCH (17:49)
[2016-12-10] MEDS: PANTOPRAZOLE 40 MG TABLET PO SCH (17:49)
--- NOTE | 2016-12-10 18:24 | PDOC ---
History and Physical - History of Present Illness Date and Time of Service: 12/10/2016, 1820 Chief Complaint: Diarrhea and weakness History of Present Illness: This is a very pleasant but demented 81-year-old female who cannot provide a very good history. History is obtained from her nephew and great-nephew although the patient normally lives with her niece. She's had assorted history of abdominal complaints and problems that started back in September. In early September the patient was [place] [facility] [place]GD and it showed a duodenal ulcer I am told. It was apparently bleeding and the patient was treated, given transfusion and was placed on iron and Protonix. She then proceeded in early November to have abdominal pain and diarrhea and was monitored in the hospital. She went home and then was readmitted with recurrent abdominal pain and diarrhea. She had a CT scan that showed a possible ileus along with a colitis that could be infectious. All the symptoms resolved and the patient was sent home again. The patient is apparently been getting weaker over the last 2 days and has been incontinent of bladder and of stool. She is normally not incontinent of bladder. No fevers, no chills, no nausea and no vomiting. No complaints of abdominal pain. The patient has had diarrhea that has started back up over the last 2 days. No laxatives have been used. The patient was placed on antibiotics with some edema in the emergency room recently for prophylaxis against infection. On my review of the emergency room report, it was felt that the patient might have had cellulitis. She took a course of Keflex therapy for this. Outside of diuretics, and recently started vitamin D, the patient has not had any new medications in the last 3-4 weeks started. Protonix is a fairly new medication for the patient since her diagnosis of ulcer. She does have well water that she uses for drinking. No one else at home has been sick with diarrhea or flu symptoms. She has not been losing weight. She is not had a colonoscopy and there is no family history of colon cancer. There is no bright red blood per rectum, but apparently in the emergency room the patient was heme positive. This may be clouded by the fact that the patient has been on by mouth iron therapy since her diagnosis of her ulcer. Past Medical History Medical History: 1. Upper GI bleed, duodenal ulcer, status post EGD and on Protonix. 2. Dementia. 3. Lower extremity edema with a recently elevated BNP without history of echocardiogram to my knowledge. Surgical History: 1. EGD. 2. Hysterectomy Pertinent Family History: I cannot obtain the patient's family history due to her dementia but her nephew tells me there is no history of colon cancer in the family. Past Social History: Does not smoke or drink. Lives with her niece I believe. Her nephew is her power of traffic law attorney. I spoke with him tonight. She is DO NOT RESUSCITATE via our discussion. Tobacco Use: Never Smoker Substance Use Type: None Alcohol Use: None Medication / Allergies Home Medications: Home Medications Medication Instructions Recorded Confirmed Type Fluoxetine HCl [Prozac] 20 mg PO DAILY 10/04/16 12/10/16 History Pantoprazole Sodium [Protonix] 40 mg PO BID 10/04/16 12/10/16 History Cholecalciferol (Vitamin D3) 1 tab PO QD #30 tab 10/31/16 12/10/16 Clinic [Vitamin D3] Metoprolol Succinate 12.5 mg PO DAILY 12/01/16 12/10/16 History Potassium Chloride [Klor-Con] 10 meq PO DAILY #5 tab 12/04/16 12/10/16 Rx Allergies/Adverse Reactions: Allergies Allergy/AdvReac Type Severity Reaction Status Date / Time No Known Allergies Allergy Verified 12/10/16 14:22 Review of Systems - Review of Systems ROS Unobtainable: Due to Mental Status (Review systems was very difficult to obtain due to dementia. Pertinent negatives include no chest pain, no shortness of breath, no nausea or vomiting. She denied muscle or joint pain and there is no history of weight loss or fever.) Exam - Vitals Vital Signs: Vital Signs Temperature 98.9 F Temperature Source Temporal Artery Scan Pulse Rate [Pulse Oximeter] 92 Respiratory Rate 20 Blood Pressure [Left Arm] 143/69 Oxygen Delivery Method Room Air Height 5 ft 2 in Weight 120 lb 9.6 oz - General General Appearance: POSITIVE: No Acute Distress, Cooperative Additional General Exam Details: I put the patient on a clear liquid diet and she was eating Jell-O and drinking tea on my exam. She does not appear septic. - Head Head Exam: POSITIVE: Normal Inspection, Normocephalic, Atraumatic Additional Head Exam Details: Hair loss. - Eye Eye Exam: POSITIVE: No Scleral Icterus - ENT ENT Exam: POSITIVE: Mucous Membranes Dry - Neck Neck Exam: POSITIVE: Normal Inspection, No Tenderness, No Thyromegaly - Respiratory Respiratory Exam: POSITIVE: Clear to Auscultation - Bilaterally, Breathing Non Labored, Normal to Percussion and Palpation - Cardiovascular Cardiovascular Exam: POSITIVE: RRR, No Murmur, No Clicks, No Gallops, No Rubs, No JVD - GI/Abdominal GI/Abdominal Exam: POSITIVE: Normal Bowel Sounds, Non Tender, Non Distended, Soft Additional GI/Abdominal Exam Details: Slightly tympanic sounding on percussion. - Rectal Rectal Exam: POSITIVE: Deferred (This was done in the emergency room and apparently was heme positive and otherwise normal. Again, I think that it is very tough to say what that means with the being heme positive in a patient that is on iron therapy.) - External Exam: POSITIVE: Deferred Exam: POSITIVE: Deferred - Extremities Extremities Exam: POSITIVE: No Clubbing Present, No Edema Present, No Cyanosis Present - Back Back Exam: POSITIVE: Normal Inspection, No CVA Tenderness - Neurological Neurological Exam: POSITIVE: Alert, No Facial Droop, Speech Intact / Clear, Moves All Extremities Equally, Altered (Alert to person, not oriented to time or situation. She is oriented to place and knows that she is in the hospital.) - Psychiatric Psychiatric Exam: POSITIVE: Normal Affect, Normal Mood - Integumentary Integumentary Exam: POSITIVE: Normal Color, Warm, Dry, Intact - Central Line Examination Central Line Present on Admission: No Results - Labs CBC and BMP: 12/10/16 15:00 12/10/16 15:00 Labs - Last 24 Hours: Laboratory Results 12/10/16 Range/Units 17:29 Lactic Acid < 0.5 L (0.70-2.10) MMOL/L Laboratory Results 12/10/16 12/10/16 12/10/16 Range/Units 15:00 15:13 17:29 WBC 5.66 (4.8-10.8) 10^3/uL RBC 4.33 (4.20-5.40) 10^6/uL Hgb 10.8 L (12.0-16.0) g/dL Hct 35.1 L (37.0-47.0) % MCV 81.1 (81-99) FL MCH 24.9 L (27-31) PG MCHC 30.8 L (33-37) g/dL RDW Std Deviation 46.9 (39-50) fL RDW Coeff of Julienne 15.9 H (11.5-14.5) % Plt Count 180 (140-350) 10*3/uL MPV 10.9 (7.4-12.2) FL Immature Gran % (Auto) 0.2 (0-5) % Neut % (Auto) 70.1 (50-80) % Lymph % (Auto) 15.4 (10-50) % Wayne % (Auto) 12.0 (5-15) % Eos % (Auto) 1.8 (0-8) % Baso % (Auto) 0.5 (0-1) % Immature Gran # (Auto) 0.01 10*3/UL Neut # (Auto) 3.97 10*3/UL Lymph # (Auto) 0.87 10*3/uL [place] # (Auto) 0.68 (0.3-0.8) 10*3/UL Eos # (Auto) 0.10 10*3/UL Baso # (Auto) 0.03 10*3/UL WBC Morphology Comment Normal morphology (NORM) Plt Morphology Comment Normal morphology (NORM) RBC Morph Comment Normal morphology (NORM) Sodium 138 (135-145) meq/L Potassium 3.8 (3.8-5.2) meq/L Chloride 103 (98-112) meq/L Carbon Dioxide 25 (23-33) meq/L Anion Gap 10 (5-20) BUN 17 (7-22) mg/dL Creatinine 0.9 (0.50-1.20) mg/dL Estimated GFR (>60 ml/min/1.73m(2)) BUN/Creatinine Ratio 18.88 (6-20) Glucose 101 (78-110) mg/dL Calculated Osmolality 287.0 (267-292) mOsm/kg Lactic Acid < 0.5 L (0.70-2.10) MMOL/L Calcium 9.1 (8.7-10.7) mg/dL Total Bilirubin 1.1 (0.3-1.2) mg/dL AST 17 (8-39) IU/L ALT 24 (9-52) IU/L Alkaline Phosphatase 76 (38-126) IU/L Total Protein 7.0 (6.1-8.0) g/dL Albumin 3.7 (3.5-4.8) g/dL Globulin 3.3 (2.50-4.10) g/dL Albumin/Globulin Ratio 1.10 L (1.3-2.0) mg/g Ur Collection Type Cath specimen Urine Color Yellow Urine Clarity Clear (CLEAR) Urine pH 5.0 (5.0-8.5) Ur Specific [place] 1.025 (1.005-1.030) Urine Protein 30 (NEG) mg/dl Urine Glucose (UA) Negative (NEG) mg/dL Urine Ketones 15 (NEG) Urine Occult Blood Moderate (NEG) Urine Nitrate Positive H (NEG) Urine Bilirubin Negative (NEG) Urine Urobilinogen 0.2 (0.2) mg/dL Ur Leukocyte Esterase Small (NEG) Urine RBC 5-10 (NONE) /hpf Urine WBC 15-20 (NONE) Ur Squamous Epith Cells None (NONE) Ur Renal Epithelial Cell None (NONE) Urine Crystals None Urine Bacteria Many (NONE) Urine Casts None Urine Mucus None (NONE) Urine Trichomonas None (NONE) Urine Yeast None (NONE) - Imaging Status: Other (I have ordered a CT scan of the abdomen and pelvis with oral and IV contrast.) Assessment and Plan - Patient Problems (1) Colitis Current Visit: Yes Status: Acute (2) Diarrhea Current Visit: Yes Status: Acute (3) HTN (hypertension) Current Visit: No Status: Chronic Qualifiers: Hypertension type: essential hypertension Qualified Description: Essential hypertension Qualifier Code(s): (I10) Essential (primary) hypertension (4) Duodenal ulcer Current Visit: Yes Status: Acute (5) Anemia, iron deficiency Current Visit: Yes Status: Acute Qualifiers: 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 As best as I can tell, the patient could have the following: Infectious colitis, C. difficile colitis from antibiotic use recently, inflammatory colitis although doubtful, the patient could have colon cancer, but has not lost a lot of weight in the last 6 months, and had a bleeding ulcer to explain her anemia that was treated and the patient is been on Protonix since that time. Diarrhea could even be caused by Protonix. She could have underlying H. pylori as well. She is on well water that could be contaminated and could have something like Giardia or cryptosporidium that's causing problems. Given the constellation of potential issues and causes of the diarrhea, I think it best to do the followin. Get stool studies done and look for leukocytes. 2. Get CT scan of abdomen and pelvis to look and see if colitis shows a Vicodin on the prior CT scan. 3. Continue Protonix for now due to the ulcer history. [place] to [place] [facility] [place] of H. pylori on biopsy there. 4. Stop all medications that we possibly can. 5. Check TSH and free T4 if they have not been checked in the last 2 months. This could also be a potential cause of diarrhea. 6. If the patient does not have any colitis or inflammatory condition, we may need to consider doing colonoscopy to make sure there is no evidence of colon cancer although I think given the patient's dementia if we can avoid any further procedures that would be ideal. 7. I did discuss CODE STATUS with the patient's nephew, her power of traffic law attorney, and we decided DO NOT RESUSCITATE. The risks of the procedure far outweigh the benefits at this patient's age with her medical comorbidities. No anti-inflammatories. No aspirin. The above plan was discussed with patient and her nephew and her great nephew, and they all agreed. Think the patient has been weakened from consistent and persistent diarrhea, she would benefit from a swing bed upon conclusion of this hospital stay. Get PT and OT. Check labs tomorrow. Continue potassium and electrolyte replacement. Urinalysis is suggestive of urine infection, but the patient does not have any symptoms of urinary infection outside of incontinence. She has had no fever and has other sources of infection. Per IDSA guidelines, this by definition does not meet criteria for urinary tract infection, and is more likely asymptomatic bacteriuria
[2016-12-10] MEDS ORDERED: Iron Sucrose Inj 500 MG in Sodium Chloride 0.9% 250 ML IV ONE (19:06)
--- NOTE | 2016-12-10 20:41 | DI ---
HISTORY: Diarrhea. COMPARISON: None available. TECHNIQUE: Contiguous axial images of the abdomen and pelvis were obtained and submitted for interpr etation. FINDINGS: Limited sections of the lung bases demonstrate bibasilar opacities, greater on the right. This could represent atelectasis, although superimposed infection is difficult to exclude. The liver and spleen return a normal attenuation. There is visible hepatosplenomegaly. Both kidneys enhance uniformly. There is no focal adrenal mass. Thickening of the left adrenal glan d could be due to hyperplasia. There is ill-defined vascularity at the splenic hilum which could be due to small varices. The gallbladder is not clearly visualized. The pancreas is atrophied. The aorta and IVC demonstrates no acute findings. There is atherosclerotic calcification of the aort a. The stomach is collapsed and partially thickened. There is moderate to severe constipation with thickening of the sigmoid colon. There is fluid within the pelvis. There is irregularity of the sigmoid colon which would benefit from colonoscopy. There is thickening of the cecum and transverse colon. The appendix is not clearly visualized although th ere are no secondary signs of appendicitis. The small bowel loops appear partially contrast-filled. Some of them appear distended, and this is n onspecific for enteritis. The urinary bladder is partially distended. The uterus is not well visualized and probably removed. The visualized osseous structures demonstrate no destructive abnormality. There is diffuse degenerat esteban change with kyphoscoliosis concave to the right. There is also loss of height of the L3 vertebra l body, which could be due to compression fracture. IMPRESSION: 1. Limited sections of the lung bases demonstrate bibasilar opacities greater on the right. This cou ld represent atelectasis, although superimposed infection is difficult to exclude. 2. Evidence of hepatosplenomegaly. 3. Thickening of the left adrenal gland could be due to hyperplasia. 4. There is ill-defined vascularity at the splenic hilum which could be due to small varices. 5. The pancreas is atrophied. 6. Atherosclerotic calcification of the aorta. 7. The stomach is collapsed and partially thickened. Recommend correlation with endoscopy where appr opriate. 8. Moderate to severe constipation with thickening of the sigmoid colon. There is fluid within the p jeanette. There is irregularity of the sigmoid colon which would benefit from colonoscopy. There is th ickening of the cecum, and transverse colon. 9. The small bowel loops appear partially contrast-filled. Some of them appear distended, and this i s nonspecific for enteritis. 10. Diffuse degenerative change with kyphoscoliosis concave to the right. There is also loss of heig ht of the L3 vertebral body, which could be due to compression fracture. NOTIFICATION: The above findings and recommendations were phoned to Javier Aguilar in the ER Department on 12/10/2016 at 10:47 PM EST.
[2016-12-10] MEDS ORDERED: cefTRIAXone Inj 1 GM in Lidocaine Inj 1% 2.1 ML IM SCH (21:00)
[2016-12-10] MEDS ORDERED: IRON SUCROSE COMPLEX 100 MG/5 ML VIAL IV ONE (21:33)
[2016-12-10] MEDS ORDERED: cefTRIAXone 1 GM VIAL ONE (22:00)
[2016-12-10] MEDS ORDERED: cefTRIAXone Inj 1 GM in Lidocaine Inj 1% 2.1 ML IV SCH (22:00)
[2016-12-10] MEDS: metroNIDAZOLE 500mg (Premix) 500 MG in Premix 1 BAG IV SCH (22:01)
[2016-12-10] MEDS: cefTRIAXone Inj 1 GM in Sodium Chloride 0.9% 100 ML IV SCH (23:00)
[2016-12-10] MEDS ORDERED: Sodium Chloride 0.9% 100 ML IV ONE (23:01)
[2016-12-11] MEDS: metroNIDAZOLE 500mg (Premix) 500 MG in Premix 1 BAG IV SCH ×3 (04:19→20:16)
[2016-12-11 05:53] LABS: BASOPHILS # (AUTO) 0.02 10*3/UL; BASOPHILS % (AUTO) 0.2 % (0-1); EOSINOPHILS % (AUTO) 0.7 % (0-8); HEMATOCRIT 37.6 % (37.0-47.0); HEMOGLOBIN 11.8 g/dL (12.0-16.0); IMM GRAN % (AUTO) 0.1 % (0-5); IMM GRAN# (AUTO) 0.01 10*3/UL; LYMPHOCYTES # (AUTO) 0.57 10*3/uL; LYMPHOCYTES % (AUTO) 5.9 % (10-50); MEAN CORPUSCULAR HEMOGLOBIN 24.9 PG (27-31); MEAN CORPUSCULAR HGB CONC 31.4 g/dL (33-37); MEAN PLATELET VOLUME 10.7 FL (7.4-12.2); MONOCYTES # (AUTO) 0.96 10*3/UL (0.3-0.8); NEUTROPHILS # (AUTO) 7.97 10*3/UL; NEUTROPHILS % (AUTO) 83.1 % (50-80); RED BLOOD COUNT 4.74 10^6/uL (4.20-5.40)
[2016-12-11 05:57] LABS: PLATELET MORPHOLOGY COMMENT NORMAL MORPHOLOGY (NORM)
[2016-12-11 05:59] LABS: PROTHROMBIN TIME 11.3 secs (9.7-11.4)
[2016-12-11 06:03] LABS: BUN/CREATININE RATIO 13.75 (6-20); CREATININE 0.8 mg/dL (0.50-1.20); POTASSIUM 3.5 meq/L (3.8-5.2)
[2016-12-11] MEDS ORDERED: Potassium Chloride Tab 10 MEQ TAB PO ONE (06:20)
[2016-12-11] MEDS: PANTOPRAZOLE 40 MG TABLET PO SCH ×2 (07:19→16:36)
[2016-12-11] MEDS: D5-1/2NS + 20mEq KCL 1,000 ML PRIMARY IV SCH ×3 (09:31→23:14)
[2016-12-11] MEDS: Potassium Chloride Tab 10 MEQ TAB PO SCH (09:31)
[2016-12-11] MEDS: ENOXAPARIN SODIUM 40 MG/0.4 ML SYRINGE SUBCUT SCH (09:31)
[2016-12-11] MEDS: FLUoxetine 20 MG CAPSULE PO SCH (09:31)
[2016-12-11] MEDS: METOPROLOL SUCCINATE 25 MG SR 24H TABLET PO SCH (09:38)
--- NOTE | 2016-12-11 10:31 | PDOC(PROG) ---
Interval History: Patient answers a few questions this morning she says she does live alone but people check on her complaints no pain no chest pain Objective : Data - Labs CBC and BMP: 12/11/16 05:25 12/11/16 05:25 Labs - Last 24 Hours: Laboratory Results 12/10/16 12/11/16 Range/Units 17:29 05:25 WBC 9.60 (4.8-10.8) 10^3/uL RBC 4.74 (4.20-5.40) 10^6/uL Hgb 11.8 L (12.0-16.0) g/dL Hct 37.6 (37.0-47.0) % MCV 79.3 L (81-99) FL MCH 24.9 L (27-31) PG MCHC 31.4 L (33-37) g/dL RDW Std Deviation 45.6 (39-50) fL RDW Coeff of Julienne 16.0 H (11.5-14.5) % Plt Count 179 (140-350) 10*3/uL MPV 10.7 (7.4-12.2) FL Immature Gran % (Auto) 0.1 (0-5) % Neut % (Auto) 83.1 H (50-80) % Lymph % (Auto) 5.9 L (10-50) % [place] % (Auto) 10.0 (5-15) % Eos % (Auto) 0.7 (0-8) % Baso % (Auto) 0.2 (0-1) % Immature Gran # (Auto) 0.01 10*3/UL Neut # (Auto) 7.97 10*3/UL Lymph # (Auto) 0.57 10*3/uL [place] # (Auto) 0.96 H (0.3-0.8) 10*3/UL Eos # (Auto) 0.07 10*3/UL Baso # (Auto) 0.02 10*3/UL WBC Morphology Comment Normal morphology (NORM) Plt Morphology Comment Normal morphology (NORM) RBC Morph Comment Normal morphology (NORM) PT 11.3 (9.7-11.4) secs INR 1.10 (0.00-5.90) N/A Sodium 135 (135-145) meq/L Potassium 3.5 L (3.8-5.2) meq/L Chloride 103 (98-112) meq/L Carbon Dioxide 22 L (23-33) meq/L Anion Gap 10 (5-20) BUN 11 (7-22) mg/dL Creatinine 0.8 (0.50-1.20) mg/dL Estimated GFR (>60 ml/min/1.73m(2)) BUN/Creatinine Ratio 13.75 (6-20) Glucose 110 (78-110) mg/dL Calculated Osmolality 279.0 (267-292) mOsm/kg Lactic Acid < 0.5 L (0.70-2.10) MMOL/L Calcium 9.0 (8.7-10.7) mg/dL NT-Pro-B Natriuret Pep 2530 H (0-450) PG/ML Lipase 110 (23-300) IU/L Objective : Exam - General General Appearance: Cooperative - Respiratory Respiratory Exam: Clear to Auscultation - Bilaterally, Breathing Non Labored, Normal To Percussion - Cardiovascular Cardiovascular Exam: RRR, No Murmur, No Clicks - GI/Abdominal GI/Abdominal Exam: Normal Bowel Sounds, Non Tender, Non Distended, Soft - Extremities Extremities Exam: No Clubbing Present, No Edema Present Assessment and Plan - Patient Problems (1) Anemia, iron deficiency Current Visit: Yes Status: Acute Qualifiers: Iron deficiency anemia type: chronic blood loss Qualified Description: Iron deficiency anemia due to chronic blood loss Qualifier Code(s): (D50.0 ) Iron deficiency anemia secondary to blood loss (chronic) (2) Dementia Current Visit: Yes Status: Acute Qualifiers: Dementia type: Alzheimer's disease (3) Diarrhea Current Visit: No Status: Acute - Assessment / Plan Additional Assessment/Plan Details: #1 diarrheathis is improving continue Rocephin and Flagyl most likely colitis other labs are pending possibly will need a colonoscopy will discuss with family #2 dementia chronic #3 iron deficiency anemia patient received IV iron We will await further studies for stool and discuss case with family members possible colonoscopy
--- NOTE | 2016-12-11 12:12 | PTI REPORT ---
Thank you for the referral of Cheryle Carter. She was seen on 12/11/16 for an inpatient evaluation secondary to diarrhea and a UTI. SUBJECTIVE: The patient is an 81-year-old female who was seen today for recent admission to [facility] for diarrhea and a UTI. The patient reports she lives alone in an apartment in [place] at the [facility]. She states she is not independent with ADLs; she has family come and visit and help her out. Meals are delivered by [employer] [facility] and the [facility] in [place]. PAST MEDICAL HISTORY: Past medical history can be found in the patient's medical record. OBJECTIVE FINDINGS: General observations: The patient was found in chair with feet elevated on room air in no apparent distress asleep. The patient was alert and oriented x3. Transfers: The patient was able to complete sit to stand transfer with contact guard assist. Ambulation: The patient was able to ambulate 100 feet with contact guard assist prior to loss of bowel control at which point the patient was brought back to her room and put in shower chair. The patient was able to complete stand pivot transfer and sit to stand transfer both with contact guard assist. Balance: The patient demonstrated good sitting static and dynamic balance and fair plus static and dynamic standing balance. Range of motion: Range of motion in bilateral lower extremities were within functional limits. Strength: Manual muscle testing revealed strength of at least 3+/5 throughout. ASSESSMENT: The patient has subjective and objective findings of generalized weakness and balance deficits at this time and would benefit from continued care to address strength, transfers, and balance activity. Short-Term Goals: To be met by discharge from inpatient: Patient will be able to ambulate 150 feet for household ambulation. Patient will be able to complete sit to stand transfers with independence. Patient will be able to demonstrate 4/5 bilateral lower extremity strength for carry over for ambulation and transfer safety. Long-Term Goals: To be met following discharge from inpatient: Patient will be able to ambulate 300 feet with least restrictive assistive device with supervision for community ambulation. Patient will demonstrate 4+/5 bilateral lower extremity strength for carry over for transfers and gait. Patient will have good static and dynamic sitting and standing balance to reduce risk of falls. TREATMENT PLAN: Patient will be seen B.I.D during the week and one time per day over the weekend as an inpatient to address the above goals and objectives. INITIAL TREATMENT: Treatment today consisted of the initial evaluation followed by ambulation with contact guard assist before loss of bowel control and range of motion activities. The patient was left in shower chair with nurse aide in no apparent distress. ROLANDO
--- NOTE | 2016-12-11 16:35 | PT.PROG ---
Progress Note Progress Note: S. Patient was very resistant to work with therapy. She reported her stomach was hurting her. O. Patient ambulated 150 feet around the nurses station, she was left in her chair with alarm and call light. A. Patient required max verbal cues to initiate moment, she was able to ambulate the full distance with a family member walking with her. She required min assist for balance during ambulation. Patient would continue to benefit from skilled therapy to increase strength and mobility. P. Continue POC.
[2016-12-11] MEDS: cefTRIAXone Inj 1 GM in Sodium Chloride 0.9% 100 ML IV SCH (23:00)
[2016-12-12] MEDS: metroNIDAZOLE 500mg (Premix) 500 MG in Premix 1 BAG IV SCH ×3 (04:17→21:51)
[2016-12-12 06:02] LABS: BASOPHILS # (AUTO) 0.03 10*3/UL; BASOPHILS % (AUTO) 0.5 % (0-1); EOSINOPHILS % (AUTO) 1.2 % (0-8); HEMATOCRIT 33.9 % (37.0-47.0); HEMOGLOBIN 10.6 g/dL (12.0-16.0); IMM GRAN % (AUTO) 0.2 % (0-5); IMM GRAN# (AUTO) 0.01 10*3/UL; LYMPHOCYTES # (AUTO) 0.77 10*3/uL; LYMPHOCYTES % (AUTO) 11.6 % (10-50); MEAN CORPUSCULAR HEMOGLOBIN 25.1 PG (27-31); MEAN CORPUSCULAR HGB CONC 31.3 g/dL (33-37); MEAN PLATELET VOLUME 10.5 FL (7.4-12.2); MONOCYTES # (AUTO) 0.76 10*3/UL (0.3-0.8); MONOCYTES % (AUTO) 11.4 % (5-15); NEUTROPHILS % (AUTO) 75.1 % (50-80); RDW COEFFICIENT OF VARIATION 16.3 % (11.5-14.5); RED BLOOD COUNT 4.22 10^6/uL (4.20-5.40); WHITE BLOOD COUNT 6.65 10^3/uL (4.8-10.8)
[2016-12-12 06:03] LABS: PLATELET MORPHOLOGY COMMENT NORMAL MORPHOLOGY (NORM)
[2016-12-12 06:12] LABS: BILIRUBIN,TOTAL 1.1 mg/dL (0.3-1.2); BUN/CREATININE RATIO 7.77 (6-20); CALCIUM 8.7 mg/dL (8.7-10.7); CREATININE 0.9 mg/dL (0.50-1.20); TOTAL PROTEIN 6.1 g/dL (6.1-8.0)
[2016-12-12] MEDS: PANTOPRAZOLE 40 MG TABLET PO SCH ×2 (06:27→16:54)
[2016-12-12] MEDS: METOPROLOL SUCCINATE 25 MG SR 24H TABLET PO SCH (08:32)
[2016-12-12] MEDS: Potassium Chloride Tab 10 MEQ TAB PO SCH (08:32)
[2016-12-12] MEDS: FLUoxetine 20 MG CAPSULE PO SCH (08:32)
[2016-12-12] MEDS: FUROSEMIDE 10 MG/1 ML - 2 ML VIAL IVP SCH ×2 (08:33→13:24)
[2016-12-12] MEDS: ENOXAPARIN SODIUM 40 MG/0.4 ML SYRINGE SUBCUT SCH (08:33)
--- NOTE | 2016-12-12 10:29 | PDOC(PROG) ---
Interval History: Patient has no complaints she is a alert underlying dementia I discussed with nursing still has 1-2 bouts of diarrhea and she also is doing physical therapy denies chest pain nausea or vomiting on clear liquids Objective : Data - Labs CBC and BMP: 12/12/16 05:55 12/12/16 05:55 Labs - Last 24 Hours: Laboratory Results 12/11/16 12/12/16 Range/Units 16:00 05:55 WBC 6.65 (4.8-10.8) 10^3/uL RBC 4.22 (4.20-5.40) 10^6/uL Hgb 10.6 L (12.0-16.0) g/dL Hct 33.9 L (37.0-47.0) % MCV 80.3 L (81-99) FL MCH 25.1 L (27-31) PG MCHC 31.3 L (33-37) g/dL RDW Std Deviation 46.8 (39-50) fL RDW Coeff of Julienne 16.3 H (11.5-14.5) % Plt Count 190 (140-350) 10*3/uL MPV 10.5 (7.4-12.2) FL Immature Gran % (Auto) 0.2 (0-5) % Neut % (Auto) 75.1 (50-80) % Lymph % (Auto) 11.6 (10-50) % [place] % (Auto) 11.4 (5-15) % Eos % (Auto) 1.2 (0-8) % Baso % (Auto) 0.5 (0-1) % Immature Gran # (Auto) 0.01 10*3/UL Neut # (Auto) 5.00 10*3/UL Lymph # (Auto) 0.77 10*3/uL [place] # (Auto) 0.76 (0.3-0.8) 10*3/UL Eos # (Auto) 0.08 10*3/UL Baso # (Auto) 0.03 10*3/UL WBC Morphology Comment Normal morphology (NORM) Plt Morphology Comment Normal morphology (NORM) RBC Morph Comment Normal morphology (NORM) Sodium 138 (135-145) meq/L Potassium 4.0 (3.8-5.2) meq/L Chloride 107 (98-112) meq/L Carbon Dioxide 23 (23-33) meq/L Anion Gap 8 (5-20) BUN 7 (7-22) mg/dL Creatinine 0.9 (0.50-1.20) mg/dL Estimated GFR (>60 ml/min/1.73m(2)) BUN/Creatinine Ratio 7.77 (6-20) Glucose 104 (78-110) mg/dL Calculated Osmolality 283.0 (267-292) mOsm/kg Calcium 8.7 (8.7-10.7) mg/dL Total Bilirubin 1.1 (0.3-1.2) mg/dL AST 11 (8-39) IU/L ALT 29 (9-52) IU/L Alkaline Phosphatase 62 (38-126) IU/L Total Protein 6.1 (6.1-8.0) g/dL Albumin 3.0 L (3.5-4.8) g/dL Globulin 3.1 (2.50-4.10) g/dL Albumin/Globulin Ratio 0.90 L (1.3-2.0) mg/g Stool Occult Blood Pending Objective : Exam - General General Appearance: Cooperative - Respiratory Respiratory Exam: Clear to Auscultation - Bilaterally, Breathing Non Labored, Normal To Percussion - Cardiovascular Cardiovascular Exam: RRR, No Murmur, No Clicks - GI/Abdominal GI/Abdominal Exam: Normal Bowel Sounds, Non Tender, Soft - Extremities Extremities Exam: No Clubbing Present, +2 Edema Assessment and Plan - Patient Problems (1) Anemia, iron deficiency Current Visit: Yes Status: Acute Qualifiers: Iron deficiency anemia type: chronic blood loss Qualified Description: Iron deficiency anemia due to chronic blood loss Qualifier Code(s): (D50.0 ) Iron deficiency anemia secondary to blood loss (chronic) (2) Dementia Current Visit: Yes Status: Acute Qualifiers: Dementia type: Alzheimer's disease (3) Diarrhea Current Visit: No Status: Acute - Assessment / Plan Additional Assessment/Plan Details: #1 diarrheastool cultures are negative continue antibiotics Rocephin and Flagyl I discussed the case with Dr. arielle Freedman which recommended colonoscopy as an outpatient #2 dementia this is chronic #3 iron deficiency anemia patient was given IV iron
--- NOTE | 2016-12-12 10:48 | OT.PROG ---
Progress Note Progress Note: S:"I had an accident." O: Pt. seen from 30 to 0 with pt. completing sit to stand transfer with mod A x 2 from edge recliner chair to standing position secondary to decreased balance (and refusing to use walker or A/E). Pt. ambulated to the toilet area/ bathroom and completing toilet transfer with min A/CGA, grab bar use, and mod vc 's for safety. Pt. then completing toileting task with total assist with pt. needing assist to pull brief up and down and cleanse. Pt,. then completed sit to stand transfer with mod A x2 and ambulating from toilet to mid-room area ( 8ft.) and move from stand to sit to w/c with mod Ax2 and mod vc's for safety. Double-gown donned on pt. and pt. then attending PT. A: Pt's family member present at the end of tx session and attending PT. Pt. was bowel and bladder incontinent this morning and demonstrates decreased safety and appeared anxious/upset, hence distracted and having some difficulty following 2-3 step verbal directions. P: Continue POC. Tigist Flor OTD, OTR/L
--- NOTE | 2016-12-12 11:22 | PT.PROG ---
Progress Note Progress Note: S. Patient agreed to go to therapy this morning. O. Patient was wheeled to the therapy gym where she transferred from the wheelchair to the table then performed supine exercises in the form of; heel slides, quad sets, ankle pumps, short arc quads all x 5 bilaterally. Patient transferred from the table to the wheelchair and was returned to her room where she ambulated 5 feet to the restroom, nursing was notified. A. Patient was very resistant to performing therapy. She required max verbal cues to stay on task and continue to perform exercises. Patient continues to be weak and is very fearful of falling. She requires min assist with transfers. Patient would continue to benefit from skilled therapy to increase strength and mobility. P. Continue POC.
--- NOTE | 2016-12-12 12:41 | OTI REPORT ---
Thank you for the referral of Cheryle Carter. She was seen on 12/11/16 for an occupational therapy initial evaluation secondary to diarrhea and a UTI. SUBJECTIVE: The patient is an 81-year-old female who is being seen secondary to having a UTI and incontinence at home. She has increased confusion. She does live at home with family. The patient is not a good historian; her family is supposed to be in this afternoon and OT will discuss her history with them at that point in time. She say she normally dresses herself and does some simple things around the home. The patient reports that she doesn't feel the greatest and she does feel a lot weaker. PAST MEDICAL HISTORY: Past medical history can be found in the patient's medical record. OBJECTIVE FINDINGS: General observations: The patient was alert and oriented x3. Range of motion: The patient had within functional limits for upper extremity range of motion. Activities of daily living: The patient was able to don and doff her socks independently. Strength: Strength in the upper extremities was 4/5 throughout. Cognitive: The patient knew her name, birthday, and where she was; however, the patient demonstrated some difficulty with being able to follow directions today and appears to be a very concrete thinker. Transfers: The patient requires min assist to come from sit to stand and min assist to complete a chair to bed transfer. ASSESSMENT: Problem List: Decreased ability to perform ADLs Decreased activity tolerance Decreased cognition Patient would benefit from 24-hour care Incontinence Short-Term Goals: To be met by discharge from inpatient: Patient will be able to dress self including set up independently. Patient will improve upper extremity strength to 4+/5. Patient will participate in a cognitive assessment to address her cognitive level. Patient will complete functional transfers safely and independently including shower and toilet transfers. Long-Term Goals: To be met following discharge from inpatient: Patient will return home with 24-hour care. TREATMENT PLAN: Patient will be seen B.I.D during the week and one time per day over the weekend as an inpatient to address the above goals and objectives. INITIAL TREATMENT: Treatment today consisted of the initial evaluation followed by the patient completing upper extremity range of motion activities, functional transfers from the chair to the bed and back to the chair, and dressing activities while sitting edge of bed. The patient was very incontinent so her Depends was changed and nursing ended up taking the patient to the shower. ROLANDO
--- NOTE | 2016-12-12 12:46 | OT PM DAY ---
Diagnosis : UTI/Incontinence PM - Occupational Therapy S: The patient reports no new changes. O: OT attempted a cognitive eval; however, the patient stated she is not up for this type of stuff. She completed a sit to stand transfer with min assist followed by a transfer to the bed with min assist for balance. We completed upper extremity range of motion x5 for active assistive motion with bilateral upper extremities. A: The patient was very hesitant about trying other activities today. A lot of family education was provided today including the patient needing 24- hour care. The patient's granddaughter who takes care of her reports it has been a little stressful at home, especially with the incontinence that she has displayed over the last week. Her granddaughter also has been taking care of some kids and it has been stressful at home. They are going to look at taking the patient home or a 24-hour care facility if needed. P: Continue seeing patient BID during the week and one time per day over the weekend for upper extremity strengthening, ADLs, and overall functional mobility. ROLANDO
[2016-12-12] MEDS: D5-1/2NS + 20mEq KCL 1,000 ML PRIMARY IV SCH (13:59)
--- NOTE | 2016-12-12 16:23 | PT.PROG ---
Progress Note Progress Note: S. Patient stated that she did not want to be bossed around and would only do what she wanted to. O. Patient ambulated 300 feet around the nurses station, she was left in bed with alarm and call light. A. Patient ambulated with SBG assist, she continues to be very resistant to therapy and became very upset and her family talked her into walking. Patient continues to be erratic and spontaneous during ambulation, she is unwilling to follow commands. She continues to struggle with balance and weakness, she would continue to benefit from skilled therapy at this time. P. Continue POC.
[2016-12-12] MEDS: cefTRIAXone Inj 1 GM in Sodium Chloride 0.9% 100 ML IV SCH (22:31)
[2016-12-13] MEDS ORDERED: cefTRIAXone Inj 2 GM in Sodium Chloride 0.9% 100 ML IV SCH ×2
[2016-12-13] MEDS: metroNIDAZOLE 500mg (Premix) 500 MG in Premix 1 BAG IV SCH ×2 (04:53→13:29)
[2016-12-13 05:37] LABS: BASOPHILS # (AUTO) 0.02 10*3/UL; BASOPHILS % (AUTO) 0.4 % (0-1); EOSINOPHILS % (AUTO) 3.9 % (0-8); HEMATOCRIT 33.9 % (37.0-47.0); HEMOGLOBIN 10.5 g/dL (12.0-16.0); IMM GRAN % (AUTO) 0.2 % (0-5); IMM GRAN# (AUTO) 0.01 10*3/UL; LYMPHOCYTES # (AUTO) 0.83 10*3/uL; MEAN CORPUSCULAR HEMOGLOBIN 24.8 PG (27-31); MEAN PLATELET VOLUME 10.9 FL (7.4-12.2); MONOCYTES # (AUTO) 0.82 10*3/UL (0.3-0.8); MONOCYTES % (AUTO) 17.7 % (5-15); NEUTROPHILS # (AUTO) 2.76 10*3/UL; NEUTROPHILS % (AUTO) 59.8 % (50-80); RDW COEFFICIENT OF VARIATION 16.5 % (11.5-14.5); RED BLOOD COUNT 4.24 10^6/uL (4.20-5.40); WHITE BLOOD COUNT 4.62 10^3/uL (4.8-10.8)
[2016-12-13 05:41] LABS: PLATELET MORPHOLOGY COMMENT NORMAL MORPHOLOGY (NORM)
[2016-12-13 05:46] LABS: BILIRUBIN,TOTAL 1.2 mg/dL (0.3-1.2); MAGNESIUM 1.4 mg/dL (1.6-2.4); POTASSIUM 3.6 meq/L (3.8-5.2); TOTAL PROTEIN 6.7 g/dL (6.1-8.0)
[2016-12-13] MEDS: PANTOPRAZOLE 40 MG TABLET PO SCH ×2 (07:04→16:53)
[2016-12-13] MEDS: FUROSEMIDE 10 MG/1 ML - 2 ML VIAL IVP SCH ×2 (07:04→13:29)
[2016-12-13] MEDS ORDERED: CYANOCOBALAMIN 1000 MCG/1 ML VIAL IM ONE (08:00)
[2016-12-13] MEDS: ENOXAPARIN SODIUM 40 MG/0.4 ML SYRINGE SUBCUT SCH (08:50)
[2016-12-13] MEDS: FLUoxetine 20 MG CAPSULE PO SCH (08:50)
[2016-12-13] MEDS: Potassium Chloride Tab 10 MEQ TAB PO SCH (08:50)
[2016-12-13] MEDS: METOPROLOL SUCCINATE 25 MG SR 24H TABLET PO SCH (08:51)
[2016-12-13] MEDS ORDERED: POTASSIUM CHLORIDE 20 MEQ TAB PO SCH (09:00)
--- NOTE | 2016-12-13 09:55 | OT.PROG ---
Progress Note Progress Note: S: pt refused all therapy at first this morning and refused to get out of bed. O: pt agreed to finally get up this morning, completing bed mobility with mod Ind. completed toilet transfer with mod Ind/SBA and refused to allow us to put on gait belt. She complete toileting with mod Ind. She completed this then we assisted with getting her weight this morning and then she returned to her chair and was assisted with comfort. pt was left with call light in her recliner. Nursing place chair alarm on. A: pt is uncooperative at times and due to this may not be appropriate for SB. will continue to progress to maintain ability to transfer. P: Continue per plan of care.
--- NOTE | 2016-12-13 11:42 | PDOC(PROG) ---
Interval History: Patient has no complaints Objective : Data - Labs CBC and BMP: 12/13/16 04:46 12/13/16 04:46 Labs - Last 24 Hours: Laboratory Results 12/11/16 12/13/16 Range/Units 05:25 04:46 WBC 4.62 L (4.8-10.8) 10^3/uL RBC 4.24 (4.20-5.40) 10^6/uL Hgb 10.5 L (12.0-16.0) g/dL Hct 33.9 L (37.0-47.0) % MCV 80.0 L (81-99) FL MCH 24.8 L (27-31) PG MCHC 31.0 L (33-37) g/dL RDW Std Deviation 47.0 (39-50) fL RDW Coeff of Julienne 16.5 H (11.5-14.5) % Plt Count 213 (140-350) 10*3/uL MPV 10.9 (7.4-12.2) FL Immature Gran % (Auto) 0.2 (0-5) % Neut % (Auto) 59.8 (50-80) % Lymph % (Auto) 18.0 (10-50) % [place] % (Auto) 17.7 H (5-15) % Eos % (Auto) 3.9 (0-8) % Baso % (Auto) 0.4 (0-1) % Immature Gran # (Auto) 0.01 10*3/UL Neut # (Auto) 2.76 10*3/UL Lymph # (Auto) 0.83 10*3/uL [place] # (Auto) 0.82 H (0.3-0.8) 10*3/UL Eos # (Auto) 0.18 10*3/UL Baso # (Auto) 0.02 10*3/UL WBC Morphology Comment Normal morphology (NORM) Plt Morphology Comment Normal morphology (NORM) RBC Morph Comment Normal morphology (NORM) Sodium 141 (135-145) meq/L Potassium 3.6 L (3.8-5.2) meq/L Chloride 101 (98-112) meq/L Carbon Dioxide 27 (23-33) meq/L Anion Gap 13 (5-20) BUN 7 (7-22) mg/dL Creatinine 1.0 (0.50-1.20) mg/dL Estimated GFR (>60 ml/min/1.73m(2)) BUN/Creatinine Ratio 7.00 (6-20) Glucose 89 (78-110) mg/dL Calculated Osmolality 288.0 (267-292) mOsm/kg Calcium 9.0 (8.7-10.7) mg/dL Magnesium 1.4 L (1.6-2.4) mg/dL Iron 448 H (35 - 145) mcg/dL TIBC 329 (250 - 400) mcg/dL % Saturation >90 H (14 - 50) % Total Bilirubin 1.2 (0.3-1.2) mg/dL AST 16 (8-39) IU/L ALT 23 (9-52) IU/L Alkaline Phosphatase 70 (38-126) IU/L Total Protein 6.7 (6.1-8.0) g/dL Albumin 3.4 L (3.5-4.8) g/dL Globulin 3.3 (2.50-4.10) g/dL Albumin/Globulin Ratio 1.00 L (1.3-2.0) mg/g Vitamin B12 178 L (180 - 914) ng/L Folate 19.1 (>=4.0) mcg/L Objective : Exam - Respiratory Respiratory Exam: Clear to Auscultation - Bilaterally, Breathing Non Labored, Normal To Percussion - Cardiovascular Cardiovascular Exam: No Murmur, No Clicks - GI/Abdominal GI/Abdominal Exam: Normal Bowel Sounds, Non Tender, Non Distended, Soft - Extremities Additional Extremities Exam Details: Edema much improved Assessment and Plan - Patient Problems (1) Anemia, iron deficiency Current Visit: Yes Status: Acute Qualifiers: Iron deficiency anemia type: chronic blood loss Qualified Description: Iron deficiency anemia due to chronic blood loss Qualifier Code(s): (D50.0 ) Iron deficiency anemia secondary to blood loss (chronic) (2) Dementia Current Visit: Yes Status: Acute Qualifiers: Dementia type: Alzheimer's disease (3) Diarrhea Current Visit: No Status: Acute - Assessment / Plan Additional Assessment/Plan Details: #1 diarrhea diarrhea has resolved continue Flagyl and Rocephin this could represent either ischemic colitis or other form most likely ischemic with her age discussed the case with Dr. arielle Freedman who recommends colonoscopy as an outpatient #2 dementia this is chronic #3 iron deficiency anemia patient was given IV iron #4 elevated BNP only patient had an echo in September so try and find the results I diuresed her with 40 of Lasix twice a day and her legs look much better #5 generalized weakness PTOT recommend alf facility
[2016-12-13] MEDS: metroNIDAZOLE Tab 500 MG TAB PO SCH ×2 (16:07→21:15)
[2016-12-13] MEDS: POTASSIUM CHLORIDE 20 MEQ TAB PO SCH (16:54)
[2016-12-13] MEDS ORDERED: CIPROFLOXACIN 500 MG TABLET PO SCH (21:00)
[2016-12-14 05:33] LABS: BASOPHILS # (AUTO) 0.01 10*3/UL; BASOPHILS % (AUTO) 0.2 % (0-1); EOSINOPHILS % (AUTO) 1.9 % (0-8); HEMATOCRIT 34.6 % (37.0-47.0); IMM GRAN % (AUTO) 0.2 % (0-5); IMM GRAN# (AUTO) 0.01 10*3/UL; LYMPHOCYTES # (AUTO) 0.63 10*3/uL; LYMPHOCYTES % (AUTO) 12.1 % (10-50); MEAN CORPUSCULAR HEMOGLOBIN 25.2 PG (27-31); MEAN CORPUSCULAR HGB CONC 31.8 g/dL (33-37); MEAN PLATELET VOLUME 10.9 FL (7.4-12.2); MONOCYTES # (AUTO) 0.79 10*3/UL (0.3-0.8); MONOCYTES % (AUTO) 15.2 % (5-15); NEUTROPHILS # (AUTO) 3.65 10*3/UL; NEUTROPHILS % (AUTO) 70.4 % (50-80); RDW COEFFICIENT OF VARIATION 16.4 % (11.5-14.5); RED BLOOD COUNT 4.36 10^6/uL (4.20-5.40); WHITE BLOOD COUNT 5.19 10^3/uL (4.8-10.8)
[2016-12-14 05:42] LABS: PLATELET MORPHOLOGY COMMENT NORMAL MORPHOLOGY (NORM)
[2016-12-14 05:49] LABS: BILIRUBIN,TOTAL 0.9 mg/dL (0.3-1.2); POTASSIUM 3.9 meq/L (3.8-5.2); TOTAL PROTEIN 6.8 g/dL (6.1-8.0)
[2016-12-14] MEDS: FUROSEMIDE 20 MG TABLET PO SCH ×2 (06:40→14:23)
[2016-12-14] MEDS: PANTOPRAZOLE 40 MG TABLET PO SCH ×2 (06:40→16:26)
[2016-12-14] MEDS: POTASSIUM CHLORIDE 20 MEQ TAB PO SCH ×2 (07:45→16:25)
[2016-12-14] MEDS: metroNIDAZOLE Tab 500 MG TAB PO SCH ×3 (08:51→20:40)
[2016-12-14] MEDS: ENOXAPARIN SODIUM 40 MG/0.4 ML SYRINGE SUBCUT SCH (08:52)
[2016-12-14] MEDS: CIPROFLOXACIN 500 MG TABLET PO SCH (08:52)
[2016-12-14] MEDS: FLUoxetine 20 MG CAPSULE PO SCH (08:52)
[2016-12-14] MEDS: METOPROLOL SUCCINATE 25 MG SR 24H TABLET PO SCH (09:00)
--- NOTE | 2016-12-14 09:52 | OT.PROG ---
Progress Note Progress Note: S: pt refused therapy after x2 attempts. O: therapy returned to her room x2 and pt would not participate in therapy. A: pt may not be suitable for SB as she does not want to participate in therapy. P: continue per plan of care.
[2016-12-14] MEDS ORDERED: CYANOCOBALAMIN 1000 MCG/1 ML VIAL IM ONE (11:47)
--- NOTE | 2016-12-14 11:48 | PDOC(PROG) ---
Date and Time of Service: 12/14/2016 11:48 AM Interval History: Subjective Patient is denying symptoms. However she is a poor historian. There is an element of dementia. She couldn't tell me how did she end up here in the hospital apart from she was sick but she couldn't tell me what kind off symptoms she had. From reviewing the notes, she had some diarrhea at home but no more diarrhea and no more bowel movements since Thursday per my discussion with the nursing staff. Objective : Data - Labs CBC and BMP: 12/14/16 05:10 12/14/16 05:10 Labs - Last 24 Hours: Laboratory Results 12/13/16 12/14/16 Range/Units 04:46 05:10 WBC 5.19 (4.8-10.8) 10^3/uL RBC 4.36 (4.20-5.40) 10^6/uL Hgb 11.0 L (12.0-16.0) g/dL Hct 34.6 L (37.0-47.0) % MCV 79.4 L (81-99) FL MCH 25.2 L (27-31) PG MCHC 31.8 L (33-37) g/dL RDW Std Deviation 47.1 (39-50) fL RDW Coeff of Julienne 16.4 H (11.5-14.5) % Plt Count 202 (140-350) 10*3/uL MPV 10.9 (7.4-12.2) FL Immature Gran % (Auto) 0.2 (0-5) % Neut % (Auto) 70.4 (50-80) % Lymph % (Auto) 12.1 (10-50) % [place] % (Auto) 15.2 H (5-15) % Eos % (Auto) 1.9 (0-8) % Baso % (Auto) 0.2 (0-1) % Immature Gran # (Auto) 0.01 10*3/UL Neut # (Auto) 3.65 10*3/UL Lymph # (Auto) 0.63 10*3/uL [place] # (Auto) 0.79 (0.3-0.8) 10*3/UL Eos # (Auto) 0.10 10*3/UL Baso # (Auto) 0.01 10*3/UL WBC Morphology Comment Normal morphology (NORM) Plt Morphology Comment Normal morphology (NORM) RBC Morph Comment Normal morphology (NORM) Sodium 137 (135-145) meq/L Potassium 3.9 (3.8-5.2) meq/L Chloride 101 (98-112) meq/L Carbon Dioxide 26 (23-33) meq/L Anion Gap 10 (5-20) BUN 11 (7-22) mg/dL Creatinine 1.0 (0.50-1.20) mg/dL Estimated GFR (>60 ml/min/1.73m(2)) BUN/Creatinine Ratio 11.00 (6-20) Glucose 100 (78-110) mg/dL Calculated Osmolality 282.0 (267-292) mOsm/kg Calcium 9.0 (8.7-10.7) mg/dL Total Bilirubin 0.9 (0.3-1.2) mg/dL AST 19 (8-39) IU/L ALT 28 (9-52) IU/L Alkaline Phosphatase 74 (38-126) IU/L NT-Pro-B Natriuret Pep 593 H (0-450) PG/ML Total Protein 6.8 (6.1-8.0) g/dL Albumin 3.5 (3.5-4.8) g/dL Globulin 3.4 (2.50-4.10) g/dL Albumin/Globulin Ratio 1.00 L (1.3-2.0) mg/g Objective : Exam - General General Appearance: No Acute Distress, Cooperative - Head Head Exam: Normal Inspection, Atraumatic - Eye Eye Exam: Normal Appearance - ENT ENT Exam: Normal Exam - Neck Neck Exam: Normal Inspection - Respiratory Respiratory Exam: Clear to Auscultation - Bilaterally - Cardiovascular Cardiovascular Exam: RRR - GI/Abdominal GI/Abdominal Exam: Normal Bowel Sounds, Non Tender, Non Distended, Soft - Rectal Rectal Exam: Deferred - External Exam: Deferred - Extremities Extremities Exam: Normal Inspection - Back Back Exam: Normal Inspection - Neurological Neurological Exam: Alert, CN II-XII Intact, Moves All Extremities Equally Additional Neurological Exam Details: She couldn't tell me the day, the month she was able to tell me the year - Integumentary Integumentary Exam: Normal Color Assessment and Plan - Patient Problems (1) Diarrhea Current Visit: Yes Status: Acute Comment: Resolved. She was treated empirically with antibiotics continue the current course. For disposition the notes from the PT says that she is a uncooperative with them the recommendation may be a correction. Will speak with the family and see what they think but will also speak with the case manager specialist tomorrow. (2) Anemia Current Visit: Yes Status: Acute Comment: She had history of GI bleed before, she is on Protonix. Her B12 level is low she got vitamin B-12 will continue with it. (3) HTN (hypertension) Current Visit: No Status: Chronic Comment: She is on Lasix for swelling in her legs and edema seems to be less continue to cut back on the dosage. She is also on metoprolol continue. Qualifiers: Hypertension type: essential hypertension Qualified Description: Essential hypertension Qualifier Code(s): (I10) Essential (primary) hypertension
[2016-12-15 06:32] LABS: CALCIUM 9.1 mg/dL (8.7-10.7); POTASSIUM 4.5 meq/L (3.8-5.2)
[2016-12-15] MEDS: PANTOPRAZOLE 40 MG TABLET PO SCH ×2 (07:49→16:49)
[2016-12-15] MEDS: FUROSEMIDE 20 MG TABLET PO SCH ×3 (07:49→10:23)
[2016-12-15] MEDS ORDERED: POTASSIUM CHLORIDE 20 MEQ TAB PO SCH (09:00)
[2016-12-15] MEDS ORDERED: FUROSEMIDE 20 MG TABLET PO SCH (09:00)
[2016-12-15] MEDS: FLUoxetine 20 MG CAPSULE PO SCH (09:13)
[2016-12-15] MEDS: CIPROFLOXACIN 500 MG TABLET PO SCH (09:13)
[2016-12-15] MEDS: metroNIDAZOLE Tab 500 MG TAB PO SCH ×3 (09:13→21:13)
[2016-12-15] MEDS: ENOXAPARIN SODIUM 40 MG/0.4 ML SYRINGE SUBCUT SCH (09:14)
[2016-12-15] MEDS: METOPROLOL SUCCINATE 25 MG SR 24H TABLET PO SCH (09:18)
[2016-12-15] MEDS ORDERED: CYANOCOBALAMIN 1000 MCG/1 ML VIAL SUBCUT ONE (09:51)
--- NOTE | 2016-12-15 09:58 | PDOC(PROG) ---
Date and Time of Service: 12/15/2016 9:53 AM Interval History: Subjective Patient is denying symptoms, she is denying abdominal pain, and bowels are okay. She is complaining about the size of the potassium pill. Objective : Data - Labs CBC and BMP: 12/14/16 05:10 12/15/16 06:05 Labs - Last 24 Hours: Laboratory Results 12/15/16 Range/Units 06:05 Sodium 133 L (135-145) meq/L Potassium 4.5 (3.8-5.2) meq/L Chloride 99 (98-112) meq/L Carbon Dioxide 23 (23-33) meq/L Anion Gap 11 (5-20) BUN 9 (7-22) mg/dL Creatinine 1.0 (0.50-1.20) mg/dL Estimated GFR (>60 ml/min/1.73m(2)) BUN/Creatinine Ratio 9.00 (6-20) Glucose 104 (78-110) mg/dL Calculated Osmolality 274.0 (267-292) mOsm/kg Calcium 9.1 (8.7-10.7) mg/dL Objective : Exam - General General Appearance: No Acute Distress, Cooperative - Head Head Exam: Normal Inspection - Eye Eye Exam: Normal Appearance - ENT ENT Exam: Normal Exam - Neck Neck Exam: Normal Inspection - Respiratory Respiratory Exam: Clear to Auscultation - Bilaterally - Cardiovascular Cardiovascular Exam: RRR - GI/Abdominal GI/Abdominal Exam: Normal Bowel Sounds, Non Tender, Soft Additional GI/Abdominal Exam Details: Abdomen is distended but nontender. - Rectal Rectal Exam: Deferred - External Exam: Deferred - Extremities Extremities Exam: Normal Inspection - Back Back Exam: Normal Inspection - Neurological Neurological Exam: Alert, CN II-XII Intact, Moves All Extremities Equally - Psychiatric Psychiatric Exam: Normal Affect - Integumentary Integumentary Exam: Normal Color Assessment and Plan - Patient Problems (1) Diarrhea Current Visit: Yes Status: Acute Comment: Seems to be resolved. All testing were negative. Abdomen is more distended today I think will do x-ray maybe even consider doing a CAT scan of her abdomen. I did speak yesterday to the nephew and to the niece today about where to go from here I think we'll keep her another day with the abdominal distention if everything is negative by tomorrow may have to discharge her from the hospital, she can not go to a swing bed because she is not cooperating with them I did explain that to the family. They're still not sure about where to go from here though. (2) Anemia Current Visit: Yes Status: Acute Comment: There is some B12 deficiency and will put her on vitamin B12 continue (3) HTN (hypertension) Current Visit: No Status: Chronic Comment: Same medications Qualifiers: Hypertension type: essential hypertension Qualified Description: Essential hypertension Qualifier Code(s): (I10) Essential (primary) hypertension
--- NOTE | 2016-12-15 16:07 | PT.PROG ---
Progress Note Progress Note: S. Patient is very resistant to therapy. O. Patient ambulated 300 feet around the nurses station and performed sit to stands x 5. Patient was left with OT for further therapy. A. Patient continues to be very resistant to therapy and does not want to do any therapy, she was willing to ambulate however continues to be very impulsive and does not listen to instruction. Patient continues to attempt to refuse therapy however her family is able to convince her to continue with us. P. continue POC.
--- NOTE | 2016-12-15 16:28 | PT.PROG ---
Progress Note Progress Note: S. Patient stated that she will go shower however she does not want to do anything else. O. Patient ambulated 70 feet then stood x 20 minutes Patient was left with OT for further therapy. A. Patient continues to be very resistant to therapy, and is very impulsive. She continues to require encouragement from her family to perform tasks. P. Continue POC.
--- NOTE | 2016-12-15 16:35 | DI ---
KUB and UPRIGHT ABDOMEN, 12/15/2016 9:41 AM: Clinical History: Abdominal distention. Previous Exam: 12/02/2016. Comparison is also made with a CT scan of the abdomen and pelvis with IV and oral contrast from 12/10/2016. There are no soft tissue or bony abnormalities. There is diffuse osteoporosis. Atelectasis is present in the right lower lobe. There are no abnormally dilated loops of large or small bowel. There is a m oderate amount of gas is located primarily in the transverse colon. There is no free air or fluid. Th ere are no abnormal radiodensities. Readin. Normal KUB and upright exam. 2. Osteoporosis.
[2016-12-15] MEDS: POTASSIUM CHLORIDE 20 MEQ TAB PO SCH (17:03)
[2016-12-16 06:35] LABS: BASOPHILS # (AUTO) 0.03 10*3/UL; BASOPHILS % (AUTO) 0.8 % (0-1); HEMATOCRIT 36.6 % (37.0-47.0); HEMOGLOBIN 11.2 g/dL (12.0-16.0); IMM GRAN % (AUTO) 0.5 % (0-5); IMM GRAN# (AUTO) 0.02 10*3/UL; LYMPHOCYTES # (AUTO) 0.69 10*3/uL; LYMPHOCYTES % (AUTO) 18.5 % (10-50); MEAN CORPUSCULAR HEMOGLOBIN 24.5 PG (27-31); MEAN CORPUSCULAR HGB CONC 30.6 g/dL (33-37); MEAN PLATELET VOLUME 10.6 FL (7.4-12.2); MONOCYTES # (AUTO) 0.91 10*3/UL (0.3-0.8); MONOCYTES % (AUTO) 24.5 % (5-15); NEUTROPHILS # (AUTO) 1.96 10*3/UL; NEUTROPHILS % (AUTO) 52.7 % (50-80); RDW COEFFICIENT OF VARIATION 16.9 % (11.5-14.5); RED BLOOD COUNT 4.57 10^6/uL (4.20-5.40); WHITE BLOOD COUNT 3.72 10^3/uL (4.8-10.8)
[2016-12-16 06:40] LABS: PLATELET MORPHOLOGY COMMENT NORMAL MORPHOLOGY (NORM)
[2016-12-16 06:49] LABS: BUN/CREATININE RATIO 15.45 (6-20); CALCIUM 9.1 mg/dL (8.7-10.7); CREATININE 1.1 mg/dL (0.50-1.20); POTASSIUM 4.1 meq/L (3.8-5.2)
[2016-12-16] MEDS: PANTOPRAZOLE 40 MG TABLET PO SCH (07:28)
[2016-12-16] MEDS: CIPROFLOXACIN 500 MG TABLET PO SCH (08:41)
[2016-12-16] MEDS: METOPROLOL SUCCINATE 25 MG SR 24H TABLET PO SCH (08:41)
[2016-12-16] MEDS: metroNIDAZOLE Tab 500 MG TAB PO SCH ×2 (08:41→15:03)
[2016-12-16] MEDS: FLUoxetine 20 MG CAPSULE PO SCH (08:41)
[2016-12-16] MEDS: ENOXAPARIN SODIUM 40 MG/0.4 ML SYRINGE SUBCUT SCH (08:42)
[2016-12-16] MEDS ORDERED: Potassium Chloride 20mEq Packet PO SCH (09:00)
--- NOTE | 2016-12-16 09:22 | PDOC(PROG) ---
Date and Time of Service: 12/16/2016 9 AM Interval History: Subjective Patient denying symptoms there is no abdominal pain, she did have a bowel movement and it was normal. She does not appear in distress Objective : Data - Labs CBC and BMP: 12/16/16 06:18 12/16/16 06:18 Labs - Last 24 Hours: Laboratory Results 12/16/16 Range/Units 06:18 WBC 3.72 L (4.8-10.8) 10^3/uL RBC 4.57 (4.20-5.40) 10^6/uL Hgb 11.2 L (12.0-16.0) g/dL Hct 36.6 L (37.0-47.0) % MCV 80.1 L (81-99) FL MCH 24.5 L (27-31) PG MCHC 30.6 L (33-37) g/dL RDW Std Deviation 49.0 (39-50) fL RDW Coeff of Julienne 16.9 H (11.5-14.5) % Plt Count 206 (140-350) 10*3/uL MPV 10.6 (7.4-12.2) FL Immature Gran % (Auto) 0.5 (0-5) % Neut % (Auto) 52.7 (50-80) % Lymph % (Auto) 18.5 (10-50) % [place] % (Auto) 24.5 H (5-15) % Eos % (Auto) 3.0 (0-8) % Baso % (Auto) 0.8 (0-1) % Immature Gran # (Auto) 0.02 10*3/UL Neut # (Auto) 1.96 10*3/UL Lymph # (Auto) 0.69 10*3/uL [place] # (Auto) 0.91 H (0.3-0.8) 10*3/UL Eos # (Auto) 0.11 10*3/UL Baso # (Auto) 0.03 10*3/UL WBC Morphology Comment Normal morphology (NORM) Plt Morphology Comment Normal morphology (NORM) RBC Morph Comment Normal morphology (NORM) Sodium 136 (135-145) meq/L Potassium 4.1 (3.8-5.2) meq/L Chloride 102 (98-112) meq/L Carbon Dioxide 25 (23-33) meq/L Anion Gap 9 (5-20) BUN 17 (7-22) mg/dL Creatinine 1.1 (0.50-1.20) mg/dL Estimated GFR (>60 ml/min/1.73m(2)) BUN/Creatinine Ratio 15.45 (6-20) Glucose 96 (78-110) mg/dL Calculated Osmolality 283.0 (267-292) mOsm/kg Calcium 9.1 (8.7-10.7) mg/dL Objective : Exam - General General Appearance: No Acute Distress, Cooperative - Head Head Exam: Normal Inspection - Eye Eye Exam: Normal Appearance - Neck Neck Exam: Normal Inspection - Respiratory Respiratory Exam: Clear to Auscultation - Bilaterally - Cardiovascular Cardiovascular Exam: RRR - GI/Abdominal GI/Abdominal Exam: Normal Bowel Sounds, Non Tender, Soft Additional GI/Abdominal Exam Details: Distention of the abdomen seems to be less today - Rectal Rectal Exam: Deferred - External Exam: Deferred - Extremities Extremities Exam: Normal Inspection - Back Back Exam: Normal Inspection - Neurological Neurological Exam: Alert, CN II-XII Intact, Moves All Extremities Equally - Psychiatric Psychiatric Exam: Normal Affect - Integumentary Integumentary Exam: Normal Color Assessment and Plan - Patient Problems (1) Diarrhea Current Visit: Yes Status: Acute Comment: This is resolved. It was treated as a possible colitis with a course of antibiotic will discharge her on a few days more. I did talk to the niece and nephew they wanted to know why she didn't have a colonoscopy here at this hospitalization. I did offer them that I can call Dr. Solano and talk to him but the niece will said they will follow-up with the primary. (2) Anemia Current Visit: Yes Status: Acute Comment: There is a B12 deficiency we put her on B12 shots and will discharge her on oral B12. This need follow-up as an outpatient (3) HTN (hypertension) Current Visit: No Status: Chronic Comment: Same medication. We'll discharge her on Lasix when necessary for leg swelling. Qualifiers: Hypertension type: essential hypertension Qualified Description: Essential hypertension Qualifier Code(s): (I10) Essential (primary) hypertension
[2016-12-16 11:15] VITALS: RESP 18; TEMP 97.8
--- NOTE | 2016-12-16 13:00 | DCSUMMARY ---
Hospitalization Summary Admit Date: 12/10/16 Discharge Date: 12/16/16 Hospital Course: Discharge diagnoses 1. Diarrhea resolved, treated as a colitis with antibiotics 2. History of duodenal ulcer 3. B12 deficiency 4. Edema of the lower leg, resolved. 5. Probable dementia 6. Hypertension 7. Evidence of hepatosplenomegaly Hospital course This is an 81 years old female with medical history significant for history of hypertension, history of duodenal ulcer, probable dementia was brought to the hospital because of diarrhea. Patient complaint started back in September when she was sent to [facility] where she had an EGD and that showed duodenal ulcer and she was put on Protonix, she was bleeding at that time and she was placed on iron and Protonix and she got transfusion. Early November she was admitted to the hospital because of abdominal pain and constipation, she had ileus at that time. She was discharged home after that she started to have abdominal pain and diarrhea and she was brought to the hospital. She had a CT of the abdomen which showed moderate severe constipation with thickening of the sigmoid colon , there is fluid within the pelvis. There is irregularity of the sigmoid colon which could benefit from a colonoscopy, there is thickening of cecum and transverse colon. She was admitted to the hospital she was started empirically on antibiotics this time. Stool test was sent and all were negative. Case was discussed with Dr. Solano who said that she need follow-up for colonoscopy as an outpatient. I saw the patient 8 to on during her hospital stay, the patient family did discuss with Dr. Mehta May be swing bed evaluation of the patient, however she was not cooperative with the physical therapist so she was not a candidate for it, we continued with antibiotic treatment there was no diarrhea, she was denying symptoms when I saw her , but there was some abdominal distention so we did an x-ray of the abdomen which showed some gas but no evidence of obstruction. The next day we thought that she could be discharged home and follow-up with her primary as an outpatient. Patient's family was wondering about why patient did not have a colonoscopy as an inpatient , I told them the discussion happened before I took over her care but if they wanted me to speak with Dr. Solano and see the reasoning but the niece declined and she decided that they will take the patient and follow up with her primary. We did notice that the patient had a B12 deficiency and we started her on B12 injections. We discharge her on oral B12. Patient did also receive while she was here an infusion of iron. Patient did have some edema and elevated BNP when she came in she was put on Lasix and she did lose weight, I did discharge her on a when necessary Lasix. She did have an echocardiogram done in September that showed evidence of grade 1 diastolic dysfunction. Laboratory Results 12/10/16 12/10/16 12/10/16 Range/Units 15:00 15:13 17:29 WBC 5.66 (4.8-10.8) 10^3/uL RBC 4.33 (4.20-5.40) 10^6/uL Hgb 10.8 L (12.0-16.0) g/dL Hct 35.1 L (37.0-47.0) % MCV 81.1 (81-99) FL MCH 24.9 L (27-31) PG MCHC 30.8 L (33-37) g/dL RDW Std Deviation 46.9 (39-50) fL RDW Coeff of Julienne 15.9 H (11.5-14.5) % Plt Count 180 (140-350) 10*3/uL MPV 10.9 (7.4-12.2) FL Immature Gran % (Auto) 0.2 (0-5) % Neut % (Auto) 70.1 (50-80) % Lymph % (Auto) 15.4 (10-50) % Stewart % (Auto) 12.0 (5-15) % Eos % (Auto) 1.8 (0-8) % Baso % (Auto) 0.5 (0-1) % Immature Gran # (Auto) 0.01 10*3/UL Neut # (Auto) 3.97 10*3/UL Lymph # (Auto) 0.87 10*3/uL Stewart # (Auto) 0.68 (0.3-0.8) 10*3/UL Eos # (Auto) 0.10 10*3/UL Baso # (Auto) 0.03 10*3/UL WBC Morphology Comment Normal morphology (NORM) Plt Morphology Comment Normal morphology (NORM) RBC Morph Comment Normal morphology (NORM) PT (9.7-11.4) secs INR (0.00-5.90) N/A Sodium 138 (135-145) meq/L Potassium 3.8 (3.8-5.2) meq/L Chloride 103 (98-112) meq/L Carbon Dioxide 25 (23-33) meq/L Anion Gap 10 (5-20) BUN 17 (7-22) mg/dL Creatinine 0.9 (0.50-1.20) mg/dL Estimated GFR (>60 ml/min/1.73m(2)) BUN/Creatinine Ratio 18.88 (6-20) Glucose 101 (78-110) mg/dL Calculated Osmolality 287.0 (267-292) mOsm/kg Lactic Acid < 0.5 L (0.70-2.10) MMOL/L Calcium 9.1 (8.7-10.7) mg/dL Magnesium (1.6-2.4) mg/dL Iron (35 - 145) mcg/dL TIBC (250 - 400) mcg/dL % Saturation (14 - 50) % Total Bilirubin 1.1 (0.3-1.2) mg/dL AST 17 (8-39) IU/L ALT 24 (9-52) IU/L Alkaline Phosphatase 76 (38-126) IU/L NT-Pro-B Natriuret Pep (0-450) PG/ML Total Protein 7.0 (6.1-8.0) g/dL Albumin 3.7 (3.5-4.8) g/dL Globulin 3.3 (2.50-4.10) g/dL Albumin/Globulin Ratio 1.10 L (1.3-2.0) mg/g Lipase (23-300) IU/L Vitamin B12 (180 - 914) ng/L Folate (>=4.0) mcg/L Ur Collection Type Cath specimen Urine Color Yellow Urine Clarity Clear (CLEAR) Urine pH 5.0 (5.0-8.5) Ur Specific Sarita 1.025 (1.005-1.030) Urine Protein 30 (NEG) mg/dl Urine Glucose (UA) Negative (NEG) mg/dL Urine Ketones 15 (NEG) Urine Occult Blood Moderate (NEG) Urine Nitrate Positive H (NEG) Urine Bilirubin Negative (NEG) Urine Urobilinogen 0.2 (0.2) mg/dL Ur Leukocyte Esterase Small (NEG) Urine RBC 5-10 (NONE) /hpf Urine WBC 15-20 (NONE) Ur Squamous Epith Cells None (NONE) Ur Renal Epithelial Cell None (NONE) Urine Crystals None Urine Bacteria Many (NONE) Urine Casts None Urine Mucus None (NONE) Urine Trichomonas None (NONE) Urine Yeast None (NONE) Stool Occult Blood Intrinsic Factor (Block (Negative) Intrin Factor Ab Comment (()) 12/11/16 12/11/16 12/12/16 Range/Units 05:25 16:00 05:55 WBC 9.60 6.65 (4.8-10.8) 10^3/uL RBC 4.74 4.22 (4.20-5.40) 10^6/uL Hgb 11.8 L 10.6 L (12.0-16.0) g/dL Hct 37.6 33.9 L (37.0-47.0) % MCV 79.3 L 80.3 L (81-99) FL MCH 24.9 L 25.1 L (27-31) PG MCHC 31.4 L 31.3 L (33-37) g/dL RDW Std Deviation 45.6 46.8 (39-50) fL RDW Coeff of Julienne 16.0 H 16.3 H (11.5-14.5) % Plt Count 179 190 (140-350) 10*3/uL MPV 10.7 10.5 (7.4-12.2) FL Immature Gran % (Auto) 0.1 0.2 (0-5) % Neut % (Auto) 83.1 H 75.1 (50-80) % Lymph % (Auto) 5.9 L 11.6 (10-50) % Stewart % (Auto) 10.0 11.4 (5-15) % Eos % (Auto) 0.7 1.2 (0-8) % Baso % (Auto) 0.2 0.5 (0-1) % Immature Gran # (Auto) 0.01 0.01 10*3/UL Neut # (Auto) 7.97 5.00 10*3/UL Lymph # (Auto) 0.57 0.77 10*3/uL Stewart # (Auto) 0.96 H 0.76 (0.3-0.8) 10*3/UL Eos # (Auto) 0.07 0.08 10*3/UL Baso # (Auto) 0.02 0.03 10*3/UL WBC Morphology Comment Normal morphology Normal morphology (NORM) Plt Morphology Comment Normal morphology Normal morphology (NORM) RBC Morph Comment Normal morphology Normal morphology (NORM) PT 11.3 (9.7-11.4) secs INR 1.10 (0.00-5.90) N/A Sodium 135 138 (135-145) meq/L Potassium 3.5 L 4.0 (3.8-5.2) meq/L Chloride 103 107 (98-112) meq/L Carbon Dioxide 22 L 23 (23-33) meq/L Anion Gap 10 8 (5-20) BUN 11 7 (7-22) mg/dL Creatinine 0.8 0.9 (0.50-1.20) mg/dL Estimated GFR (>60 ml/min/1.73m(2)) BUN/Creatinine Ratio 13.75 7.77 (6-20) Glucose 110 104 (78-110) mg/dL Calculated Osmolality 279.0 283.0 (267-292) mOsm/kg Lactic Acid (0.70-2.10) MMOL/L Calcium 9.0 8.7 (8.7-10.7) mg/dL Magnesium (1.6-2.4) mg/dL Iron 448 H (35 - 145) mcg/dL TIBC 329 (250 - 400) mcg/dL % Saturation >90 H (14 - 50) % Total Bilirubin 1.1 (0.3-1.2) mg/dL AST 11 (8-39) IU/L ALT 29 (9-52) IU/L Alkaline Phosphatase 62 (38-126) IU/L NT-Pro-B Natriuret Pep 2530 H (0-450) PG/ML Total Protein 6.1 (6.1-8.0) g/dL Albumin 3.0 L (3.5-4.8) g/dL Globulin 3.1 (2.50-4.10) g/dL Albumin/Globulin Ratio 0.90 L (1.3-2.0) mg/g Lipase 110 (23-300) IU/L Vitamin B12 178 L (180 - 914) ng/L Folate 19.1 (>=4.0) mcg/L Ur Collection Type Urine Color Urine Clarity (CLEAR) Urine pH (5.0-8.5) Ur Specific Sarita (1.005-1.030) Urine Protein (NEG) mg/dl Urine Glucose (UA) (NEG) mg/dL Urine Ketones (NEG) Urine Occult Blood (NEG) Urine Nitrate (NEG) Urine Bilirubin (NEG) Urine Urobilinogen (0.2) mg/dL Ur Leukocyte Esterase (NEG) Urine RBC (NONE) /hpf Urine WBC (NONE) Ur Squamous Epith Cells (NONE) Ur Renal Epithelial Cell (NONE) Urine Crystals Urine Bacteria (NONE) Urine Casts Urine Mucus (NONE) Urine Trichomonas (NONE) Urine Yeast (NONE) Stool Occult Blood Pending Intrinsic Factor (Block (Negative) Intrin Factor Ab Comment (()) 12/13/16 12/14/16 12/15/16 Range/Units 04:46 05:10 06:05 WBC 4.62 L 5.19 (4.8-10.8) 10^3/uL RBC 4.24 4.36 (4.20-5.40) 10^6/uL Hgb 10.5 L 11.0 L (12.0-16.0) g/dL Hct 33.9 L 34.6 L (37.0-47.0) % MCV 80.0 L 79.4 L (81-99) FL MCH 24.8 L 25.2 L (27-31) PG MCHC 31.0 L 31.8 L (33-37) g/dL RDW Std Deviation 47.0 47.1 (39-50) fL RDW Coeff of Julienne 16.5 H 16.4 H (11.5-14.5) % Plt Count 213 202 (140-350) 10*3/uL MPV 10.9 10.9 (7.4-12.2) FL Immature Gran % (Auto) 0.2 0.2 (0-5) % Neut % (Auto) 59.8 70.4 (50-80) % Lymph % (Auto) 18.0 12.1 (10-50) % Stewart % (Auto) 17.7 H 15.2 H (5-15) % Eos % (Auto) 3.9 1.9 (0-8) % Baso % (Auto) 0.4 0.2 (0-1) % Immature Gran # (Auto) 0.01 0.01 10*3/UL Neut # (Auto) 2.76 3.65 10*3/UL Lymph # (Auto) 0.83 0.63 10*3/uL Stewart # (Auto) 0.82 H 0.79 (0.3-0.8) 10*3/UL Eos # (Auto) 0.18 0.10 10*3/UL Baso # (Auto) 0.02 0.01 10*3/UL WBC Morphology Comment Normal morphology Normal morphology (NORM) Plt Morphology Comment Normal morphology Normal morphology (NORM) RBC Morph Comment Normal morphology Normal morphology (NORM) PT (9.7-11.4) secs INR (0.00-5.90) N/A Sodium 141 137 133 L (135-145) meq/L Potassium 3.6 L 3.9 4.5 (3.8-5.2) meq/L Chloride 101 101 99 (98-112) meq/L Carbon Dioxide 27 26 23 (23-33) meq/L Anion Gap 13 10 11 (5-20) BUN 7 11 9 (7-22) mg/dL Creatinine 1.0 1.0 1.0 (0.50-1.20) mg/dL Estimated GFR (>60 ml/min/1.73m(2)) BUN/Creatinine Ratio 7.00 11.00 9.00 (6-20) Glucose 89 100 104 (78-110) mg/dL Calculated Osmolality 288.0 282.0 274.0 (267-292) mOsm/kg Lactic Acid (0.70-2.10) MMOL/L Calcium 9.0 9.0 9.1 (8.7-10.7) mg/dL Magnesium 1.4 L (1.6-2.4) mg/dL Iron (35 - 145) mcg/dL TIBC (250 - 400) mcg/dL % Saturation (14 - 50) % Total Bilirubin 1.2 0.9 (0.3-1.2) mg/dL AST 16 19 (8-39) IU/L ALT 23 28 (9-52) IU/L Alkaline Phosphatase 70 74 (38-126) IU/L NT-Pro-B Natriuret Pep 593 H (0-450) PG/ML Total Protein 6.7 6.8 (6.1-8.0) g/dL Albumin 3.4 L 3.5 (3.5-4.8) g/dL Globulin 3.3 3.4 (2.50-4.10) g/dL Albumin/Globulin Ratio 1.00 L 1.00 L (1.3-2.0) mg/g Lipase (23-300) IU/L Vitamin B12 (180 - 914) ng/L Folate (>=4.0) mcg/L Ur Collection Type Urine Color Urine Clarity (CLEAR) Urine pH (5.0-8.5) Ur Specific Sarita (1.005-1.030) Urine Protein (NEG) mg/dl Urine Glucose (UA) (NEG) mg/dL Urine Ketones (NEG) Urine Occult Blood (NEG) Urine Nitrate (NEG) Urine Bilirubin (NEG) Urine Urobilinogen (0.2) mg/dL Ur Leukocyte Esterase (NEG) Urine RBC (NONE) /hpf Urine WBC (NONE) Ur Squamous Epith Cells (NONE) Ur Renal Epithelial Cell (NONE) Urine Crystals Urine Bacteria (NONE) Urine Casts Urine Mucus (NONE) Urine Trichomonas (NONE) Urine Yeast (NONE) Stool Occult Blood Intrinsic Factor (Block Positive (Negative) Intrin Factor Ab Comment See comments (()) 12/16/16 Range/Units 06:18 WBC 3.72 L (4.8-10.8) 10^3/uL RBC 4.57 (4.20-5.40) 10^6/uL Hgb 11.2 L (12.0-16.0) g/dL Hct 36.6 L (37.0-47.0) % MCV 80.1 L (81-99) FL MCH 24.5 L (27-31) PG MCHC 30.6 L (33-37) g/dL RDW Std Deviation 49.0 (39-50) fL RDW Coeff of Julienne 16.9 H (11.5-14.5) % Plt Count 206 (140-350) 10*3/uL MPV 10.6 (7.4-12.2) FL Immature Gran % (Auto) 0.5 (0-5) % Neut % (Auto) 52.7 (50-80) % Lymph % (Auto) 18.5 (10-50) % Stewart % (Auto) 24.5 H (5-15) % Eos % (Auto) 3.0 (0-8) % Baso % (Auto) 0.8 (0-1) % Immature Gran # (Auto) 0.02 10*3/UL Neut # (Auto) 1.96 10*3/UL Lymph # (Auto) 0.69 10*3/uL Stewart # (Auto) 0.91 H (0.3-0.8) 10*3/UL Eos # (Auto) 0.11 10*3/UL Baso # (Auto) 0.03 10*3/UL WBC Morphology Comment Normal morphology (NORM) Plt Morphology Comment Normal morphology (NORM) RBC Morph Comment Normal morphology (NORM) PT (9.7-11.4) secs INR (0.00-5.90) N/A Sodium 136 (135-145) meq/L Potassium 4.1 (3.8-5.2) meq/L Chloride 102 (98-112) meq/L Carbon Dioxide 25 (23-33) meq/L Anion Gap 9 (5-20) BUN 17 (7-22) mg/dL Creatinine 1.1 (0.50-1.20) mg/dL Estimated GFR (>60 ml/min/1.73m(2)) BUN/Creatinine Ratio 15.45 (6-20) Glucose 96 (78-110) mg/dL Calculated Osmolality 283.0 (267-292) mOsm/kg Lactic Acid (0.70-2.10) MMOL/L Calcium 9.1 (8.7-10.7) mg/dL Magnesium (1.6-2.4) mg/dL Iron (35 - 145) mcg/dL TIBC (250 - 400) mcg/dL % Saturation (14 - 50) % Total Bilirubin (0.3-1.2) mg/dL AST (8-39) IU/L ALT (9-52) IU/L Alkaline Phosphatase (38-126) IU/L NT-Pro-B Natriuret Pep (0-450) PG/ML Total Protein (6.1-8.0) g/dL Albumin (3.5-4.8) g/dL Globulin (2.50-4.10) g/dL Albumin/Globulin Ratio (1.3-2.0) mg/g Lipase (23-300) IU/L Vitamin B12 (180 - 914) ng/L Folate (>=4.0) mcg/L Ur Collection Type Urine Color Urine Clarity (CLEAR) Urine pH (5.0-8.5) Ur Specific Sarita (1.005-1.030) Urine Protein (NEG) mg/dl Urine Glucose (UA) (NEG) mg/dL Urine Ketones (NEG) Urine Occult Blood (NEG) Urine Nitrate (NEG) Urine Bilirubin (NEG) Urine Urobilinogen (0.2) mg/dL Ur Leukocyte Esterase (NEG) Urine RBC (NONE) /hpf Urine WBC (NONE) Ur Squamous Epith Cells (NONE) Ur Renal Epithelial Cell (NONE) Urine Crystals Urine Bacteria (NONE) Urine Casts Urine Mucus (NONE) Urine Trichomonas (NONE) Urine Yeast (NONE) Stool Occult Blood Intrinsic Factor (Block (Negative) Intrin Factor Ab Comment (()) Discharge instruction Diet regular The distorted Medications Home Medications Medication Instructions Recorded Confirmed Type Fluoxetine HCl [Prozac] 20 mg PO DAILY 10/04/16 12/10/16 History Cholecalciferol (Vitamin D3) 1 tab PO QD #30 tab 10/31/16 12/10/16 Clinic [Vitamin D3] Potassium Chloride [Klor-Con] 10 meq PO DAILY #5 tab 12/04/16 12/10/16 Rx Cyanocobalamin (Vitamin B-12) 1,000 mcg PO DAILY #30 tablet 12/16/16 Rx [B-12] Furosemide [Lasix] 20 mg PO DAILY PRN #30 tablet 12/16/16 Rx Levofloxacin [Levaquin] 500 mg PO DAILY #4 tablet 12/16/16 Rx Metoprolol Succinate 12.5 mg PO DAILY #30 tab.er.24h 12/16/16 Rx Pantoprazole Sodium [Protonix] 40 mg PO BID #30 tab 12/16/16 Rx Potassium Chloride Packet [K-Lilian 20 meq PO DAILY PRN #30 packet 12/16/16 Rx Packet] metroNIDAZOLE Tab [Flagyl Tab] 500 mg PO TID #12 tab 12/16/16 Rx Follow-up with her PCP in 1-2 weeks condition at discharge was stable for discharge Exam - Vitals Vital Signs: Vital Signs Temperature 97.8 F Temperature Source Temporal Artery Scan Pulse Rate [Apical] 94 Pulse Rate [Pulse Oximeter] 104 Respiratory Rate 18 Blood Pressure [Right Arm] 119/57 Blood Pressure [Left Arm] 113/63 Pulse Ox 96 Oxygen Delivery Method Room Air Height 5 ft 2 in Weight 111 lb Patient Problems - Patient Problem List (1) Diarrhea Status: Acute (2) Anemia Status: Acute (3) HTN (hypertension) Status: Chronic Qualifiers: Hypertension type: essential hypertension Qualified Description: Essential hypertension Qualifier Code(s): (I10) Essential (primary) hypertension
[2016-12-16 13:27] LABS: COMMENT SEE COMMENTS (())
--- NOTE | 2016-12-16 16:40 | OT AM DAY ---
Diagnosis : Incontinence/UTI AM - Occupational Therapy S: The patient was in recliner upon the therapist's arrival. The patient states she is not going to perform any exercises today. O: With encouragement from her niece, the patient did perform bed mobility, transfers, and functional ambulation within the room. During this time period, discussion of future plans for living arrangements were discussed with niece and with patient. The patient states that she does not want to go to [facility]. The patient also stated that she liked living with her niece but felt at times that she may be in the way. The patient's niece states she is glad to have her in the home and she will make arrangements to continue to care for her aunt. A: The patient is very stubborn and set in her ways. She is very direct. She does have cognitive issues that require 24-hour care. The patient was not able to states where she was or what day it was, even with conversation, she was not able to recall answers to questions that were given to her earlier. The patient is able to remember things in her past very clearly. The patient had met the therapist prior to today's session and did remember that she had met the therapist previously. At this time it is noted that the patient struggles with comfort if her family is not available; she is argumentative when working toward a task but given time and a plan. She does follow instructions and will complete tasks that have been laid out with guidance. P: Continue seeing patient BID during the week and one time per day over the weekend for upper extremity strengthening, ADLs, and overall functional mobility. ROLANDO
--- NOTE | 2016-12-16 16:47 | OT PM DAY ---
Diagnosis : Incontinence/UTI PM - Occupational Therapy S: The patient was in her recliner upon the therapist's arrival. She was very argumentative at the time and stated that she was not going to take a shower or do anything for the therapist. The therapist sat and spoke with the patient for a while to give her comfort and reassurance. The family was present at this point and the patient was encouraged to perform showering. O: The patient did go down to have a scan done of her abdomen and upon return from the scan she was directed to the shower room. The patient required encouragement from grandson and from therapist prior to her taking a shower. She was very insistent that she take a shower alone. The shower room was set up for the patient and the therapist stood outside of the door, being able to look in without the patient realizing the therapist was there. It is noted that the patient struggled at times with processing taking of her gown that was tied, but eventually she was able to perform the task. The therapist would bring in certain garments or certain items so the patient would allow the patient to come in and assist at times. The patient was insistent that she is independent and able to do all tasks; however, once the therapist was able to talk to her, the patient did allow the therapist to assist with doffing and donning of hospital gown and donning her socks during dressing. The patient was able to perform showering task and drying herself independently. The patient is able to doff her socks but struggles with donning socks secondary to socks being very tight. The patient stood during the shower but sat during dressing task. The patient did require min assist during showering. At end of session the patient functionally ambulated back to her room and visited with her family. The patient was transferred into her recliner with her feet up. It is noted that the patient had redness and dry skin on her ankles and a skin protection cream was applied to her skin bilaterally. A: At the end of session the therapist did speak with the doctor, stating that the niece is agreeing to have the patient return to her home. P: Continue seeing patient BID during the week and one time per day over the weekend for upper extremity strengthening, ADLs, and overall functional mobility. ROLANDO
== END 2016-12-16 15:51 | disposition home or self-care (01) | DRG 392 ==
LOC: ER 14:20 → MED/SURG 16:27 → OBSVTOIN 16:27
PROVIDERS: ADMIT Family Medicine; ATTEND Family Medicine
DX: K52.9 Noninfective gastroenteritis and colitis, unspecified (principal); Z87.11 Personal history of peptic ulcer disease; K92.2 Gastrointestinal hemorrhage, unspecified; N39.0 Urinary tract infection, site not specified; E53.8 Deficiency of other specified B group vitamins; R60.0 Localized edema; F03.90 Unspecified dementia, unspecified severity, without behavioral disturbance, psychotic disturbance, mood disturbance, and anxiety; I10 Essential (primary) hypertension; R16.2 Hepatomegaly with splenomegaly, not elsewhere classified; D64.9 Anemia, unspecified; R19.7 Diarrhea, unspecified
CPT/HCPCS: 36415; 74020; 74177; 80048; 80053; 81001; 82272; 82607; 82746; 83540; 83550; 83605; 83690; 83735; 83880; 85025; 85610; 86340; 87205; 87328; 87329; 87493; 96360; 96361; 97110; 97530; 97535; 99285; J0696; J1650; J1756; J1940; J3420; J3490; J7030; J7050

== ENCOUNTER → 2016-12-22 | Outpatient (CLI) | payer OTHER ==
[2016-12-22 15:44] LABS: BASOPHILS # (AUTO) 0.02 10*3/UL; BASOPHILS % (AUTO) 0.4 % (0-1); EOSINOPHILS % (AUTO) 1.4 % (0-8); HEMATOCRIT 40.7 % (37.0-47.0); HEMOGLOBIN 12.4 g/dL (12.0-16.0); IMM GRAN % (AUTO) 0.2 % (0-5); IMM GRAN# (AUTO) 0.01 10*3/UL; LYMPHOCYTES # (AUTO) 0.94 10*3/uL; MEAN CORPUSCULAR HEMOGLOBIN 24.5 PG (27-31); MEAN CORPUSCULAR HGB CONC 30.5 g/dL (33-37); MEAN PLATELET VOLUME 10.7 FL (7.4-12.2); MONOCYTES # (AUTO) 0.51 10*3/UL (0.3-0.8); MONOCYTES % (AUTO) 10.3 % (5-15); NEUTROPHILS # (AUTO) 3.41 10*3/UL; NEUTROPHILS % (AUTO) 68.7 % (50-80); RDW COEFFICIENT OF VARIATION 17.6 % (11.5-14.5); RED BLOOD COUNT 5.06 10^6/uL (4.20-5.40); WHITE BLOOD COUNT 4.96 10^3/uL (4.8-10.8)
[2016-12-22 15:46] LABS: PLATELET MORPHOLOGY COMMENT NORMAL MORPHOLOGY (NORM)
[2016-12-22 15:48] LABS: POTASSIUM 3.6 meq/L (3.8-5.2)
[2016-12-22 15:49] LABS: BILIRUBIN,TOTAL 0.4 mg/dL (0.3-1.2); CALCIUM 9.7 mg/dL (8.7-10.7); CREATININE 0.9 mg/dL (0.50-1.20); TOTAL PROTEIN 7.6 g/dL (6.1-8.0)
== END ==
LOC: MOB LAB 12:38
PROVIDERS: ATTEND Internal Medicine
DX: D50.8 Other iron deficiency anemias (principal); E46 Unspecified protein-calorie malnutrition; I10 Essential (primary) hypertension; E53.8 Deficiency of other specified B group vitamins
CPT/HCPCS: 36415; 80053; 85025

== ENCOUNTER → 2017-01-12 | Outpatient (CLI) | payer OTHER ==
[2017-01-12 14:29] LABS: BASOPHILS # (AUTO) 0.02 10*3/UL; BASOPHILS % (AUTO) 0.5 % (0-1); EOSINOPHILS % (AUTO) 2.3 % (0-8); HEMOGLOBIN 12.5 g/dL (12.0-16.0); IMM GRAN % (AUTO) 0 % (0-5); IMM GRAN# (AUTO) 0 10*3/UL; LYMPHOCYTES % (AUTO) 22.8 % (10-50); MEAN CORPUSCULAR HEMOGLOBIN 25.1 PG (27-31); MEAN CORPUSCULAR HGB CONC 31.3 g/dL (33-37); MEAN PLATELET VOLUME 10.4 FL (7.4-12.2); MONOCYTES # (AUTO) 0.54 10*3/UL (0.3-0.8); MONOCYTES % (AUTO) 12.3 % (5-15); NEUTROPHILS # (AUTO) 2.72 10*3/UL; NEUTROPHILS % (AUTO) 62.1 % (50-80); RDW COEFFICIENT OF VARIATION 19.1 % (11.5-14.5); RED BLOOD COUNT 4.98 10^6/uL (4.20-5.40); WHITE BLOOD COUNT 4.38 10^3/uL (4.8-10.8)
[2017-01-12 14:31] LABS: PLATELET MORPHOLOGY COMMENT NORMAL MORPHOLOGY (NORM)
[2017-01-12 15:28] LABS: BUN/CREATININE RATIO 23.33 (6-20); CALCIUM 9.5 mg/dL (8.7-10.7); CREATININE 0.9 mg/dL (0.50-1.20); POTASSIUM 3.6 meq/L (3.8-5.2)
== END ==
LOC: LAB 11:17
PROVIDERS: ATTEND Internal Medicine
DX: D64.9 Anemia, unspecified (principal); E46 Unspecified protein-calorie malnutrition; I10 Essential (primary) hypertension
CPT/HCPCS: 80048; 82607; 82728; 85025

== ENCOUNTER → 2017-03-16 | Outpatient (CLI) | payer OTHER ==
[2017-03-16 12:11] LABS: HEMATOCRIT 38.2 % (37.0-47.0); HEMOGLOBIN 11.9 g/dL (12.0-16.0); MEAN CORPUSCULAR HEMOGLOBIN 26.3 PG (27-31); MEAN CORPUSCULAR HGB CONC 31.2 g/dL (33-37); MEAN CORPUSCULAR VOLUME 84.2 FL (81-99); RED BLOOD COUNT 4.53 10^6/uL (4.20-5.40)
[2017-03-16 12:12] LABS: BASOPHILS % (AUTO) 0.6 % (0-1); EOSINOPHILS % (AUTO) 4.5 % (0-8); MEAN PLATELET VOLUME 9.9 FL (7.4-12.2); MONOCYTES % (AUTO) 9.1 % (5-15); NEUTROPHILS # (AUTO) 3.09 10*3/UL; NEUTROPHILS % (AUTO) 66.6 % (50-80)
[2017-03-16 12:13] LABS: BASOPHILS # (AUTO) 0.03 10*3/UL; EOSINOPHILS # (AUTO) 0.21 10*3/UL; LYMPHOCYTES # (AUTO) 0.89 10*3/uL; MONOCYTES # (AUTO) 0.42 10*3/UL (0.3-0.8); PLATELET MORPHOLOGY COMMENT NORMAL MORPHOLOGY (NORM); RBC MORPHOLOGY COMMENT NORMAL MORPHOLOGY (NORM); WBC MORPHOLOGY COMMENT NORMAL MORPHOLOGY (NORM)
== END ==
LOC: LAB 11:24
PROVIDERS: ATTEND Internal Medicine
DX: I10 Essential (primary) hypertension (principal); R89.9 Unspecified abnormal finding in specimens from other organs, systems and tissues; K21.9 Gastro-esophageal reflux disease without esophagitis; E46 Unspecified protein-calorie malnutrition; R41.89 Other symptoms and signs involving cognitive functions and awareness; F32.9 Major depressive disorder, single episode, unspecified
CPT/HCPCS: 36415; 85025; 99213; G0463

== ENCOUNTER → 2017-06-16 | Outpatient (CLI) | payer OTHER ==
[2017-06-16 15:06] LABS: HEMATOCRIT 41.1 % (37.0-47.0); HEMOGLOBIN 12.9 g/dL (12.0-16.0); MEAN CORPUSCULAR HEMOGLOBIN 27.7 PG (27-31); MEAN CORPUSCULAR HGB CONC 31.4 g/dL (33-37); MEAN CORPUSCULAR VOLUME 88.4 FL (81-99); MEAN PLATELET VOLUME 10.3 FL (7.4-12.2); RED BLOOD COUNT 4.65 10^6/uL (4.20-5.40)
== END ==
LOC: LAB 14:43
PROVIDERS: ATTEND Internal Medicine
DX: E46 Unspecified protein-calorie malnutrition (principal); I10 Essential (primary) hypertension; E53.8 Deficiency of other specified B group vitamins; F32.9 Major depressive disorder, single episode, unspecified
CPT/HCPCS: 36415; 82607; 85027; 99213; G0463

== ENCOUNTER → 2017-07-09 | Outpatient (CLI) | payer OTHER | LOC: MMPC 10:00 | PROVIDERS: ATTEND Podiatrist Foot & Ankle Surgery | DX: L60.3 Nail dystrophy (principal); R60.0 Localized edema; L85.0 Acquired ichthyosis; I87.2 Venous insufficiency (chronic) (peripheral) | CPT/HCPCS: 11721 ×2; G0463 ==